=== PATIENT | female | born 1960 | race Caucasian/White ===

== ENCOUNTER 2017-02-17 09:30 | Emergency (ER) | payer MEDICARE, OTHER ==
[2017-02-17 09:43] VITALS: RESP 16
[2017-02-17] MEDS ORDERED: SODIUM CHLORIDE 0.9% 1,000 ML IV STA (09:43)
[2017-02-17] MEDS ORDERED: FAMOTIDINE 20 MG/2 ML VIAL IV STA (09:44)
--- NOTE | 2017-02-17 09:45 | ED ---
Abdominal Pain HPI - General Chief Complaint: Abdominal Pain Stated Complaint: Nausea/Vomiting Time Seen by Provider: 02/17/17 09:35 Source: patient, EMS, RN notes reviewed Mode of arrival: EMS Limitations: no limitations - History of Present Illness Initial Comments: This a 56-year-old female presents emergency Department chief complaint of nausea vomiting diarrhea. Patient states symptoms started this morning. Patient states she started feeling very nauseous and vomited several times and states that she started having abdominal discomfort related to her vomiting. She's states is in her upper abdomen. Patient denies any fever or chills. Patient states she's had several episodes of loose watery diarrhea. Patient denies any recent antibiotic use no sick contacts. Patient denies any dysuria or hematuria. Patient denies any rectal bleeding or hematemesis. Patient states she has a history also colitis but this feels different. Patient denies any chest pain or shortness breath. - Related Data Home Medications Medication Instructions Recorded Confirmed Albuterol Nebulized [Ventolin 2.5 mg INHALATION RT-Q4H PRN 02/17/17 02/17/17 Nebulized] Albuterol Sulfate [Proair Hfa] 2 puff INHALATION RT-Q4H PRN 02/17/17 02/17/17 Amitriptyline HCl [Elavil] 10 mg PO HS 02/17/17 02/17/17 Cholecalciferol [Vitamin D3] 3,000 unit PO DAILY 02/17/17 02/17/17 HYDROcodone/APAP 10-325MG [[place] 1 tab PO Q6H PRN 02/17/17 02/17/17 10-325] Nitroglycerin Sl Tabs [Nitrostat] 0.4 mg SUBLINGUAL Q5M PRN 02/17/17 02/17/17 Pantoprazole Sodium [Protonix] 40 mg PO DAILY 02/17/17 02/17/17 Prochlorperazine [Compazine] 10 mg PO Q8H PRN 02/17/17 02/17/17 Rebif Rebidose 44mcg/0.5ml 0.44 mcg SQ MOWEFR 02/17/17 02/17/17 Simvastatin [Zocor] 20 mg PO HS 02/17/17 02/17/17 Sucralfate [Carafate] 1 gm PO ACHS 02/17/17 02/17/17 Previous Rx's Medication Instructions Recorded Ondansetron Odt [Zofran Odt] 4 mg PO Q8HR PRN #10 tab 02/17/17 Allergies Allergy/AdvReac Type Severity Reaction Status Date / Time ciprofloxacin Allergy Rash/Hives Verified 02/17/17 10:15 Review of Systems ROS Statement: Those systems with pertinent positive or pertinent negative responses have been documented in the HPI. ROS Other: All systems not noted in ROS Statement are negative. Past Medical History Additional Past Medical History / Comment(s): Multiple sclerosis, Ulcerative Colitis, Osteoporosis L hip. History of Any Multi-Drug Resistant Organisms: None Reported Past Surgical History: Orthopedic Surgery Additional Past Surgical History / Comment(s): tumor removed from throat Past Psychological History: No Psychological Hx Reported Smoking Status: Current every day smoker Past Alcohol Use History: None Reported Past Drug Use History: Marijuana General Exam General appearance: alert, in no apparent distress Head exam: Present: atraumatic, normocephalic, normal inspection Neck exam: Present: normal inspection, full ROM. Absent: tenderness, meningismus, lymphadenopathy Respiratory exam: Present: normal lung sounds bilaterally. Absent: respiratory distress, wheezes, rales, rhonchi, stridor Cardiovascular Exam: Present: regular rate, normal rhythm, normal heart sounds. Absent: systolic murmur, diastolic murmur, rubs, gallop, clicks GI/Abdominal exam: Present: soft, normal bowel sounds. Absent: distended, tenderness (Patient had no tenderness with palpation), guarding, rebound, rigid Back exam: Absent: CVA tenderness (R), CVA tenderness (L) Skin exam: Present: warm, dry, intact, normal color. Absent: rash Course Vital Signs 02/17/17 09:36 Temperature 96.9 F L Pulse Rate 72 Respiratory 16 Rate Blood Pressure 124/81 O2 Sat by Pulse 98 Oximetry Medical Decision Making - Medical Decision Making 56-year-old female presented for abdominal discomfort, diarrhea and nausea vomiting. Patient's labwork is essentially unremarkable. Patient's x-ray does not show any acute abnormality. Patient states she isn't feeling improved after Zofran and Pepcid. Patient we discharge return parameters were discussed. - Lab Data Result diagrams: 02/17/17 09:45 02/17/17 09:45 Lab Results 02/17/17 02/17/1702/17/17 Range/Units 09:45 09:45 09:56 WBC 6.9 (3.8-10.6) k/uL RBC 4.32 (3.80-5.40) m/uL Hgb 13.6 (11.4-16.0) gm/dL Hct 39.5 (34.0-46.0) % MCV 91.5 (80.0-100.0) fL MCH 31.5 (25.0-35.0) pg MCHC 34.5 (31.0-37.0) g/dL RDW 13.5 (11.5-15.5) % Plt Count 170 (150-450) k/uL Neutrophils % 68 % Lymphocytes % 23 % Monocytes % 4 % Eosinophils % 3 % Basophils % 0 % Neutrophils # 4.7 (1.3-7.7) k/uL Lymphocytes # 1.6 (1.0-4.8) k/uL Monocytes # 0.3 (0-1.0) k/uL Eosinophils # 0.2 (0-0.7) k/uL Basophils # 0.0 (0-0.2) k/uL Sodium 143 (137-145) mmol/L Potassium 3.4 L (3.5-5.1) mmol/L Chloride 111 H (98-107) mmol/L Carbon Dioxide 22 (22-30) mmol/L Anion Gap 10 mmol/L BUN 12 (7-17) mg/dL Creatinine 0.71 (0.52-1.04) mg/dL Est GFR (MDRD) Af Amer >60 (>60 ml/min/1.73 sqM) Est GFR (MDRD) Non-Af >60 (>60 ml/min/1.73 sqM) Glucose 111 H (74-99) mg/dL Calcium 9.0 (8.4-10.2) mg/dL Total Bilirubin 0.5 (0.2-1.3) mg/dL AST 69 H (14-36) U/L ALT 75 H (9-52) U/L Alkaline Phosphatase 65 (38-126) U/L Total Protein 6.8 (6.3-8.2) g/dL Albumin 3.9 (3.5-5.0) g/dL Amylase 43 (30-110) U/L Lipase 101 (23-300) U/L Urine Color Light Yellow Urine Appearance Clear (Clear) Urine pH 7.0 (5.0-8.0) Ur Specific [place] 1.006 (1.001-1.035) Urine Protein Negative (Negative) Urine Glucose (UA) Negative (Negative) Urine Ketones Negative (Negative) Urine Blood Negative (Negative) Urine Nitrite Negative (Negative) Urine Bilirubin Negative (Negative) Urine Urobilinogen <2.0 (<2.0) mg/dL Ur Leukocyte Esterase Negative (Negative) Disposition Clinical Impression: Abdominal pain, Gastroenteritis Disposition: HOME SELF-CARE Condition: Stable Instructions: Gastroenteritis (ED) Additional Instructions: Please return to the Emergency Department if symptoms worsen or any other concerns. Prescriptions: Ondansetron Odt [Zofran Odt] 4 mg PO Q8HR PRN #10 tab PRN Reason: Nausea Referrals: Musa Damon MD [Primary Care Provider] - 1-2 days Time of Disposition: 10:31
[2017-02-17 09:56] LABS: Basophils % (A) 0 %; CH 31.5; CHCM 34.6; Eosinophils # (A) 0.2 k/uL (0-0.7); Eosinophils % (A) 3 %; HCT 39.5 % (34.0-46.0); HDW 2.66; HGB 13.6 gm/dL (11.4-16.0); Luc % (Auto) 2; Lymphocytes # (A) 1.6 k/uL (1.0-4.8); Lymphocytes % (A) 23 %; MCH 31.5 pg (25.0-35.0); MCHC 34.5 g/dL (31.0-37.0); MCV 91.5 fL (80.0-100.0); Mean Platelet Volume 8.9; Monocytes # (A) 0.3 k/uL (0-1.0); Monocytes % (A) 4 %; Neutrophils # (A) 4.7 k/uL (1.3-7.7); Neutrophils % (A) 68 %; RBC 4.32 m/uL (3.80-5.40); RDW 13.5 % (11.5-15.5); WBC 6.9 k/uL (3.8-10.6); WBC (Perox) 6.74
[2017-02-17 10:07] LABS: ALT 75 U/L (9-52); AST 69 U/L (14-36); Alkaline Phosphatase 65 U/L (38-126); Amylase 43 U/L (30-110); Anion Gap 10 mmol/L; Blood Urea Nitrogen 12 mg/dL (7-17); Carbon Dioxide 22 mmol/L (22-30); Chloride 111 mmol/L (98-107); Glucose 111 mg/dL (74-99); Non-African American GFR(MDRD) >60 (>60 ml/min/1.73 sqM); Potassium 3.4 mmol/L (3.5-5.1); Sodium 143 mmol/L (137-145); Total Bilirubin 0.5 mg/dL (0.2-1.3); Total Protein 6.8 g/dL (6.3-8.2)
[2017-02-17 10:16] LABS: Appearance,Urine Clear (Clear); Bilirubin,Urine Negative (Negative); Glucose,Urine (UA) Negative (Negative); Ketones,Urine Negative (Negative); Leukocyte Esterase,Urine Negative (Negative); Nitrite,Urine Negative (Negative); Protein,Urine Negative (Negative); Specific Gravity,Urine 1.006 (1.001-1.035); UA Billing (MACRO vs. MICRO) CHEM; Urobilinogen,Urine <2.0 mg/dL (<2.0)
--- NOTE | 2017-02-17 10:20 | XR ---
EXAMINATION TYPE: XR KUB DATE OF EXAM: 02/17/2017 10:13 AM CLINICAL HISTORY: Mid abdominal pain all over with nausea and vomiting. TECHNIQUE: Single upright KUB image of the abdomen is obtained. COMPARISON: Abdominal x-ray September 23, 2011. FINDINGS: Scattered gas is seen in non-distended stomach and small bowel loops. Gas and fecal materia l is seen in non-distended colon. Cholecystectomy clips are redemonstrated. Suspect surgical sutures left pelvis unchanged from prior study. Visualized lung bases are clear. No pneumoperitoneum is seen. There is marked disc space narrowing L3-L4 level with slight scoliotic curvature redemonstrated. IMPRESSION: Overall nonobstructive bowel gas pattern.
[2017-02-17 10:39] VITALS: BP 137/85; PULSE 69; TEMP 97.2
== END 2017-02-17 10:43 | disposition home or self-care (01) ==
LOC: EC 09:30
DX: K52.9 Noninfective gastroenteritis and colitis, unspecified (principal); R11.2 Nausea with vomiting, unspecified; G35 Multiple sclerosis; F17.200 Nicotine dependence, unspecified, uncomplicated; Z79.899 Other long term (current) drug therapy; Z88.1 Allergy status to other antibiotic agents
CPT/HCPCS: 36415; 74000; 80053; 81003; 82150; 83690; 85025; 96361; 96374; 99284

== ENCOUNTER 2017-02-18 10:34 | Inpatient (IN) | payer MEDICARE, OTHER ==
[2017-02-18] MEDS ORDERED: RX INFO: IV CONTRAST WAS GIVEN 1 EACH MISC MISCELLANE PRN (11:02)
[2017-02-18] MEDS ORDERED: HYDROmorphone 1 MG/ML 1 ML SYRINGE IVP STA (11:02)
[2017-02-18] MEDS ORDERED: ONDANSETRON 4 MG/2 ML VIAL IVP STA (11:02)
[2017-02-18] MEDS ORDERED: SODIUM CHLORIDE 0.9% 1,000 ML IV STA (11:02)
--- NOTE | 2017-02-18 11:05 | ED ---
General Adult HPI - General Chief complaint: Nausea/Vomiting/Diarrhea Stated complaint: revisit vomiting Time Seen by Provider: 02/18/17 10:35 Source: patient, family, RN notes reviewed Mode of arrival: wheelchair Limitations: no limitations - History of Present Illness Initial comments: This is a 56-year-old female who presents to the emergency department with past medical history significant for ulcers colitis. Patient states about 24 hours ago started vomiting having abdominal pain mostly in the right upper quadrant. Patient states she came to the emergency department yesterday and felt better when she left but however symptoms returned when she got home he continued to vomit throughout the night. Patient states she has diarrhea but shows his diuretic is avulsed colitis. Patient denies any bleeding in the stool. Patient denies any bleeding when she vomits. Patient denies any fever or chills. Patient denies any difficulty breathing shortness of breath. Patient states she is a smoker however. Patient denies any chest pain. Patient denies any lightheadedness dizziness or near syncopal episode. - Related Data Home Medications Medication Instructions Recorded Confirmed Albuterol Nebulized [Ventolin 2.5 mg INHALATION RT-Q4H PRN 02/17/17 02/18/17 Nebulized] Albuterol Sulfate [Proair Hfa] 2 puff INHALATION RT-Q4H PRN 02/17/17 02/18/17 Amitriptyline HCl [Elavil] 10 mg PO HS 02/17/17 02/18/17 Cholecalciferol [Vitamin D3] 3,000 unit PO DAILY 02/17/17 02/18/17 HYDROcodone/APAP 10-325MG [[place] 1 tab PO Q6H PRN 02/17/17 02/18/17 10-325] Nitroglycerin Sl Tabs [Nitrostat] 0.4 mg SUBLINGUAL Q5M PRN 02/17/17 02/18/17 Pantoprazole Sodium [Protonix] 40 mg PO DAILY 02/17/17 02/18/17 Prochlorperazine [Compazine] 10 mg PO Q8H PRN 02/17/17 02/18/17 Rebif Rebidose 44mcg/0.5ml 0.44 mcg SQ MOWEFR 02/17/17 02/18/17 Simvastatin [Zocor] 20 mg PO HS 02/17/17 02/18/17 Sucralfate [Carafate] 1 gm PO ACHS 02/17/17 02/18/17 Previous Rx's Medication Instructions Recorded Ondansetron Odt [Zofran Odt] 4 mg PO Q8HR PRN #10 tab 02/17/17 Allergies Allergy/AdvReac Type Severity Reaction Status Date / Time ciprofloxacin Allergy Rash/Hives Verified 02/18/17 10:45 Review of Systems ROS Statement: Those systems with pertinent positive or pertinent negative responses have been documented in the HPI. ROS Other: All systems not noted in ROS Statement are negative. Past Medical History Additional Past Medical History / Comment(s): Multiple sclerosis, Ulcerative Colitis, Osteoporosis L hip. History of Any Multi-Drug Resistant Organisms: None Reported Past Surgical History: Orthopedic Surgery Additional Past Surgical History / Comment(s): tumor removed from throat Past Psychological History: No Psychological Hx Reported Smoking Status: Current every day smoker Past Alcohol Use History: None Reported Past Drug Use History: Marijuana General Exam - General Exam Comments Initial Comments: GENERAL: Patient is well-developed and well-nourished. Patient is nontoxic and well- hydrated and is in no acute distress. ENT: Neck is soft and supple. No significant lymphadenopathy is noted. Oropharynx is clear. Moist mucous membranes. Neck has full range of motion without eliciting any pain. EYES: The sclera were anicteric and conjunctiva were pink and moist. Extraocular movements were intact and pupils were equal round and reactive to light. Eyelids were unremarkable. PULMONARY: Unlabored respirations. Good breath sounds bilaterally. No audible rales rhonchi or wheezing was noted. CARDIOVASCULAR: There is a regular rate and rhythm without any murmurs gallops or rubs. ABDOMEN: Soft and nontender with normal bowel sounds. There is no rebound or guarding. No palpable organomegaly was noted. There is no palpable pulsatile mass. SKIN: Skin is clear with no lesions or rashes and otherwise unremarkable. NEUROLOGIC: Patient is alert and oriented x3. Cranial nerves II through XII are grossly intact. Motor and sensory are also intact. Normal speech, volume and content. Symmetrical smile. MUSCULOSKELETAL: Normal extremities with adequate strength and full range of motion. No lower extremity swelling or edema. No calf tenderness. LYMPHATICS: No significant lymphadenopathy is noted PSYCHIATRIC: Normal psychiatric evaluation. Limitations: no limitations Course Vital Signs 02/18/17 02/18/17 10:35 11:08 Temperature 98.0 F 98 F Pulse Rate 119 H 110 H Respiratory 16 Rate Blood Pressure 135/94 145/92 O2 Sat by Pulse 99 99 Oximetry Medical Decision Making - Medical Decision Making Computed tomography scan shows colitis. - Lab Data Result diagrams: 02/18/17 11:34 02/18/17 11:34 Lab Results 02/18/17 02/18/17 02/18/17 Range/Units 11:34 11:34 11:34 WBC 12.8 H (3.8-10.6) k/uL RBC 5.50 H (3.80-5.40) m/uL Hgb 16.9 H D (11.4-16.0) gm/dL Hct 47.9 H (34.0-46.0) % MCV 87.2 (80.0-100.0) fL MCH 30.7 (25.0-35.0) pg MCHC 35.2 (31.0-37.0) g/dL RDW 12.9 (11.5-15.5) % Plt Count 238 (150-450) k/uL Neutrophils % 83 % Lymphocytes % 11 % Monocytes % 5 % Eosinophils % 0 % Basophils % 0 % Neutrophils # 10.7 H (1.3-7.7) k/uL Lymphocytes # 1.4 (1.0-4.8) k/uL Monocytes # 0.6 (0-1.0) k/uL Eosinophils # 0.0 (0-0.7) k/uL Basophils # 0.0 (0-0.2) k/uL Sodium 139 (137-145) mmol/L Potassium 3.3 L (3.5-5.1) mmol/L Chloride 99 (98-107) mmol/L Carbon Dioxide 23 (22-30) mmol/L Anion Gap 17 mmol/L BUN 14 (7-17) mg/dL Creatinine 0.73 (0.52-1.04) mg/dL Est GFR (MDRD) Af Amer >60 (>60 ml/min/1.73 sqM) Est GFR (MDRD) Non-Af >60 (>60 ml/min/1.73 sqM) Glucose 152 H (74-99) mg/dL Plasma Lactic Acid Silver 2.2 H* (0.7-2.0) mmol/L Calcium 10.5 H (8.4-10.2) mg/dL Total Bilirubin 0.7 (0.2-1.3) mg/dL AST 110 H (14-36) U/L ALT 173 H (9-52) U/L Alkaline Phosphatase 107 (38-126) U/L Total Protein 8.6 H (6.3-8.2) g/dL Albumin 5.0 (3.5-5.0) g/dL Amylase 108 (30-110) U/L Lipase 323 H (23-300) U/L Urine Color Urine Appearance (Clear) Urine pH (5.0-8.0) Ur Specific [place] (1.001-1.035) Urine Protein (Negative) Urine Glucose (UA) (Negative) Urine Blood (Negative) Urine Nitrite (Negative) Urine Bilirubin (Negative) Urine Urobilinogen (<2.0) mg/dL Ur Leukocyte Esterase (Negative) Urine RBC (0-5) /hpf Urine WBC (0-5) /hpf Ur Squamous Epith Cells (0-4) /hpf Hyaline Casts (0-2) /lpf Urine Mucus (None) /hpf 02/18/ Range/Units 11:41 WBC (3.8-10.6) k/uL RBC (3.80-5.40) m/uL Hgb (11.4-16.0) gm/dL Hct (34.0-46.0) % MCV (80.0-100.0) fL MCH (25.0-35.0) pg MCHC (31.0-37.0) g/dL RDW (11.5-15.5) % Plt Count (150-450) k/uL Neutrophils % % Lymphocytes % % Monocytes % % Eosinophils % % Basophils % % Neutrophils # (1.3-7.7) k/uL Lymphocytes # (1.0-4.8) k/uL Monocytes # (0-1.0) k/uL Eosinophils # (0-0.7) k/uL Basophils # (0-0.2) k/uL Sodium (137-145) mmol/L Potassium (3.5-5.1) mmol/L Chloride (98-107) mmol/L Carbon Dioxide (22-30) mmol/L Anion Gap mmol/L BUN (7-17) mg/dL Creatinine (0.52-1.04) mg/dL Est GFR (MDRD) Af Amer (>60 ml/min/1.73 sqM) Est GFR (MDRD) Non-Af (>60 ml/min/1.73 sqM) Glucose (74-99) mg/dL Plasma Lactic Acid Silver (0.7-2.0) mmol/L Calcium (8.4-10.2) mg/dL Total Bilirubin (0.2-1.3) mg/dL AST (14-36) U/L ALT (9-52) U/L Alkaline Phosphatase (38-126) U/L Total Protein (6.3-8.2) g/dL Albumin (3.5-5.0) g/dL Amylase (30-110) U/L Lipase (23-300) U/L Urine Color Yellow Urine Appearance Cloudy H (Clear) Urine pH 6.5 (5.0-8.0) Ur Specific [place] 1.016 (1.001-1.035) Urine Protein 3+ H (Negative) Urine Glucose (UA) Negative (Negative) Urine Blood Small H (Negative) Urine Nitrite Negative (Negative) Urine Bilirubin Negative (Negative) Urine Urobilinogen <2.0 (<2.0) mg/dL Ur Leukocyte Esterase Negative (Negative) Urine RBC 22 H (0-5) /hpf Urine WBC 4 (0-5) /hpf Ur Squamous Epith Cells 10 H (0-4) /hpf Hyaline Casts 2 (0-2) /lpf Urine Mucus Rare H (None) /hpf Disposition Clinical Impression: Colitis Disposition: ADMITTED IP TO THIS [facility] Referrals: Musa Damon MD [Primary Care Provider] - 1-2 days Time of Disposition: 13:01
[2017-02-18 12:00] LABS: ALT 173 U/L (9-52); AST 110 U/L (14-36); Alkaline Phosphatase 107 U/L (38-126); Amylase 108 U/L (30-110); Anion Gap 17 mmol/L; Blood Urea Nitrogen 14 mg/dL (7-17); Calcium 10.5 mg/dL (8.4-10.2); Carbon Dioxide 23 mmol/L (22-30); Chloride 99 mmol/L (98-107); Glucose 152 mg/dL (74-99); Non-African American GFR(MDRD) >60 (>60 ml/min/1.73 sqM); Potassium 3.3 mmol/L (3.5-5.1); Sodium 139 mmol/L (137-145); Total Bilirubin 0.7 mg/dL (0.2-1.3); Total Protein 8.6 g/dL (6.3-8.2)
--- NOTE | 2017-02-18 12:05 | XR ---
EXAMINATION TYPE: XR chest 2V DATE OF EXAM: 02/18/2017 COMPARISON: None HISTORY: 56-year-old female difficulty breathing TECHNIQUE: AP and lateral views FINDINGS: The cardiomediastinal silhouette, aorta, and pulmonary vasculature are within normal limits. Strandy areas of atelectasis in the lower lungs. There is some right suprahilar prominence suspected summatio n artifact. No consolidation or pleural effusion. Prominent right anterior sixth rib end. IMPRESSION: 1. Strandy areas of atelectasis. No acute process seen. 2. Some right suprahilar prominence, suspected summation artifact. Recommend 4-6 week follow-up to re assess.
[2017-02-18 12:06] LABS: Basophils % (A) 0 %; CH 31.2; Eosinophils % (A) 0 %; HCT 47.9 % (34.0-46.0); HDW 2.71; Luc % (Auto) 1; Lymphocytes # (A) 1.4 k/uL (1.0-4.8); Lymphocytes % (A) 11 %; MCH 30.7 pg (25.0-35.0); MCHC 35.2 g/dL (31.0-37.0); MCV 87.2 fL (80.0-100.0); Mean Platelet Volume 8.1; Monocytes # (A) 0.6 k/uL (0-1.0); Monocytes % (A) 5 %; Neutrophils # (A) 10.7 k/uL (1.3-7.7); Neutrophils % (A) 83 %; RDW 12.9 % (11.5-15.5); WBC 12.8 k/uL (3.8-10.6); WBC (Perox) 12.71
[2017-02-18 12:10] LABS: HGB 16.9 gm/dL (11.4-16.0)
[2017-02-18 12:12] LABS: Appearance,Urine Cloudy (Clear); Bilirubin,Urine Negative (Negative); Glucose,Urine (UA) Negative (Negative); Ketones,Urine 2+ (Negative); Leukocyte Esterase,Urine Negative (Negative); Mucus,Urine Rare /hpf; Nitrite,Urine Negative (Negative); PH, Urine 6.5 (5.0-8.0); Particle Count 3853; Protein,Urine 3+ (Negative); RBC,Urine 22 /hpf (0-5); Specific Gravity,Urine 1.016 (1.001-1.035); Squamous Epithelial Cell,Urine 10 /hpf (0-4); UA Billing (MACRO vs. MICRO) MICRO; Urobilinogen,Urine <2.0 mg/dL (<2.0); WBC,Urine 4 /hpf (0-5)
--- NOTE | 2017-02-18 12:51 | CT ---
EXAMINATION TYPE: CT abdomen pelvis w con DATE OF EXAM: 02/18/2017 COMPARISON: NONE HISTORY: Abdominal pain CT DLP: 1061 mGycm CONTRAST: CT scan of the abdomen and pelvis is performed without Oral Contrast and with IV Contrast, patient in jected with 100 ml mL of Omnipaque 300. FINDINGS: LUNG BASES-: No visible nodule. No infiltrate. LIVER/GB: No space occupying hepatic lesion. Biliary tree is of normal caliber. There is evidence of fatty hepatic infiltration. Cholecystectomy clips are in place. PANCREAS: No inflammation. No distinct mass. SPLEEN: No splenic enlargement. No lesion seen. ADRENALS: No nodule. No thickening. KIDNEYS/BLADDER: No hydronephrosis. No nephrolithiasis. No disctinct renal mass. Urinary bladder g rossly unremarkable. BOWEL: Normal appendix. There is wall thickening which is mild in degree involving the descending col on and sigmoid colon compatible with colitis. GENITAL ORGANS: 1 cm follicular cyst left ovary. Uterus and right ovary are unremarkable. LYMPH NODES: No greater than 1cm abdominal or pelvic lymph nodes are appreciated. AORTA: No significant abnormality. OSSEOUS STRUCTURES: No significant abnormality is seen. OTHER: No significant additional abnormality is seen. IMPRESSION: 1. Nonspecific colitis of the descending colon and sigmoid colon. 2. Fatty liver. 3. Small left ovarian follicular cyst.
[2017-02-18] MEDS ORDERED: SODIUM CHLORIDE 0.9% 1,000 ML IV ONE (13:01)
[2017-02-18] MEDS ORDERED: methylPREDNISolone SOD SUCCI 125 MG/2 ML VIAL IV STA (13:03)
[2017-02-18] MEDS ORDERED: PROCHLORPERAZINE 10 MG TAB PO PRN (15:34)
[2017-02-18] MEDS ORDERED: ALBUTEROL NEBULIZED 2.5 MG/3 ML INHALATION PRN (15:34)
[2017-02-18] MEDS: HYDROmorphone 1 MG/ML 1 ML SYRINGE IVP PRN (16:45)
[2017-02-18] MEDS: metroNIDAZOLE 500 MG TAB PO SCH ×2 (17:09→19:46)
[2017-02-18] MEDS: SUCRALFATE 1 GM TAB PO SCH ×2 (17:09→19:46)
[2017-02-18] MEDS ORDERED: Potassium Replacement Protocol 1 EACH MISC MISCELLANE PRN (18:47)
[2017-02-18] MEDS: ONDANSETRON 4 MG/2 ML VIAL IVP PRN (19:27)
[2017-02-18] MEDS: POTASSIUM CHLORIDE ER 20 MEQ TAB.ER PO SCH ×2 (19:48→21:41)
[2017-02-18] MEDS ORDERED: AMITRIPTYLINE HCL 10 MG TAB PO SCH (21:00)
[2017-02-18 23:20] VITALS: TEMP 98.7
[2017-02-19] MEDS: POTASSIUM CHLORIDE ER 20 MEQ TAB.ER PO SCH (00:01)
[2017-02-19] MEDS ORDERED: ALPRAZolam 0.25 MG TAB PO PRN (00:21)
[2017-02-19] MEDS: NICOTINE 14MG/24HR PATCH TRANSDERM SCH ×2 (01:14→15:18)
[2017-02-19] MEDS: ONDANSETRON 4 MG/2 ML VIAL IVP PRN (03:05)
[2017-02-19] MEDS: HYDROmorphone 1 MG/ML 1 ML SYRINGE IVP PRN ×3 (03:05→11:09)
[2017-02-19] MEDS ORDERED: PANTOPRAZOLE 40 MG TABLET PO SCH (07:30)
[2017-02-19] MEDS: SUCRALFATE 1 GM TAB PO SCH ×2 (07:32→12:58)
[2017-02-19 08:12] VITALS: PULSE 92; RESP 18
[2017-02-19 08:35] VITALS: BP 164/97
[2017-02-19] MEDS ORDERED: CHOLECALCIFEROL 1,000 UNIT TAB PO SCH (09:00)
[2017-02-19] MEDS: metroNIDAZOLE 500 MG TAB PO SCH (09:46)
[2017-02-19 10:46] LABS: Basophils % (A) 0 %; CH 31.4; CHCM 34.4; Eosinophils % (A) 0 %; HDW 2.65; HGB 15.9 gm/dL (11.4-16.0); Luc # (Auto) 0.13; Luc % (Auto) 1; Lymphocytes # (A) 1.2 k/uL (1.0-4.8); Lymphocytes % (A) 8 %; MCHC 33.8 g/dL (31.0-37.0); MCV 91.7 fL (80.0-100.0); Mean Platelet Volume 8.7; Monocytes # (A) 0.8 k/uL (0-1.0); Monocytes % (A) 5 %; Neutrophils # (A) 13.6 k/uL (1.3-7.7); Neutrophils % (A) 87 %; RBC 5.12 m/uL (3.80-5.40); WBC 15.7 k/uL (3.8-10.6); WBC (Perox) 15.94
[2017-02-19 10:53] LABS: ALT 118 U/L (9-52); AST 69 U/L (14-36); Alkaline Phosphatase 80 U/L (38-126); Anion Gap 10 mmol/L; Blood Urea Nitrogen 14 mg/dL (7-17); Calcium 9.5 mg/dL (8.4-10.2); Carbon Dioxide 24 mmol/L (22-30); Chloride 102 mmol/L (98-107); Glucose 130 mg/dL (74-99); Non-African American GFR(MDRD) >60 (>60 ml/min/1.73 sqM); Sodium 136 mmol/L (137-145); Total Bilirubin 0.5 mg/dL (0.2-1.3); Total Protein 7.5 g/dL (6.3-8.2)
[2017-02-19 13:35] VITALS: BMI 24.4
--- NOTE | 2017-02-19 14:16 | P.HPIM ---
History of Present Illness H&P Date: 02/18/17 This is a 56-year-old female with history of multiple sclerosis, diagnosed with ulcerative colitis by physician out of [facility] system comes in to the hospital with complaints of diarrhea a day prior to admission Patient states that she did have some abdominal pain with concern for a UC flare patient came in to the hospital patient was seen in the emergency room Patient stated that she has had multiple loose stools and was hemoconcentrated hence was admitted for IV hydration Patient apparently did have antibiotic use or a month ago for a odontogenic infection Patient however denied having any headaches blurry vision nausea vomiting chest pain, difficulty breathing, lower extremity edema Patient has a history of multiple sclerosis Review of Systems All systems: negative (Noted in HPI) Past Medical History Past Medical History: GERD/Reflux, Hyperlipidemia, Osteoarthritis (OA), Pneumonia Additional Past Medical History / Comment(s): Multiple sclerosis, Ulcerative Colitis, Osteoporosis L hip.past kidney stone, past benign throat tumor removed , shanika tinnitus, migarines, "3 samll strokes""poor circulation rt leg",hiatal hernia, fx tail bone, occ n/t arms and laegs History of Any Multi-Drug Resistant Organisms: None Reported Past Surgical History: Cholecystectomy, Orthopedic Surgery, Tonsillectomy, Tubal Ligation Additional Past Surgical History / Comment(s): tumor removed from throat, kidney stone removed,"artifiical ear drum inserted""roller ball sx d/t heavy periods-has'nt had a period in >20 years, colonoscopy/egd, rt rotator cuff repair, rt bicept sx d/t tear. Past Anesthesia/Blood Transfusion Reactions: Motion Sickness, Postoperative Nausea & Vomiting (PONV) Additional Past Anesthesia/Blood Transfusion Reaction / Comment(s): clausterphobia Smoking Status: Current every day smoker - Past Family History Father Family Medical History: Cancer Additional Family Medical History / Comment(s): throat Mother Family Medical History: Cancer Additional Family Medical History / Comment(s): uterin/bone Medications and Allergies Home Medications Medication Instructions Recorded Confirmed Type Albuterol Nebulized [Ventolin 2.5 mg INHALATION RT-Q4H PRN 02/17/17 02/18/17 History Nebulized] Albuterol Sulfate [Proair Hfa] 2 puff INHALATION RT-Q4H PRN 02/17/17 02/18/17 History Amitriptyline HCl [Elavil] 10 mg PO HS 02/17/17 02/18/17 History Cholecalciferol [Vitamin D3] 3,000 unit PO DAILY 02/17/17 02/18/17 History HYDROcodone/APAP 10-325MG [[place] 1 tab PO Q6H PRN 02/17/17 02/18/17 History 10-325] Nitroglycerin Sl Tabs [Nitrostat] 0.4 mg SUBLINGUAL Q5M PRN 02/17/17 02/18/17 History Pantoprazole Sodium [Protonix] 40 mg PO DAILY 02/17/17 02/18/17 History Prochlorperazine [Compazine] 10 mg PO Q8H PRN 02/17/17 02/18/17 History Rebif Rebidose 44mcg/0.5ml 0.44 mcg SQ MOWEFR 02/17/17 02/18/17 History Simvastatin [Zocor] 20 mg PO HS 02/17/17 02/18/17 History Sucralfate [Carafate] 1 gm PO ACHS 02/17/17 02/18/17 History Allergies Allergy/AdvReac Type Severity Reaction Status Date / Time ciprofloxacin Allergy Rash/Hives Verified 02/18/17 10:45 Physical Exam Vitals: Vital Signs Temp Pulse Resp BP Pulse Ox 02/18/17 15:57 98.8 F 90 19 164/83 94 L 02/18/17 15:22 95 20 150/107 98 02/18/17 14:39 104 H 16 161/99 97 02/18/17 11:08 98 F 110 H 145/92 99 02/18/17 10:35 98.0 F 119 H 16 135/94 99 Intake and Output 02/18/17 02/18/17 02/18/17 06:59 14:59 22:59 Other: Weight 56.699 kg Patient Weight 02/19/17 06:59 Weight 56.699 kg Physical exam Gen. appearance oriented 3 in no distress Neck is supple no JVD Lungs good air entry clear to auscultation no rhonchi or wheezing Heart S1-S2 heard regular rate and rhythm no murmurs appreciated Abdomen is soft nontender no organomegaly bowel sounds are intact Neurologically cranial nerves II-12 grossly intact no focal motor or sensory deficits noted Skin no abnormalities appreciated Results CBC & Chem 7: 02/19/17 09:34 02/19/17 09:34 Labs: Abnormal Lab Results - Last 24 Hours (Table) 02/18/17 02/18/17 02/18/17 Range/Units 11:34 11:34 11:34 WBC 12.8 H (3.8-10.6) k/uL RBC 5.50 H (3.80-5.40) m/uL Hgb 16.9 H D (11.4-16.0) gm/dL Hct 47.9 H (34.0-46.0) % Neutrophils # 10.7 H (1.3-7.7) k/uL Potassium 3.3 L (3.5-5.1) mmol/L Glucose 152 H (74-99) mg/dL Plasma Lactic Acid Silver 2.2 H* (0.7-2.0) mmol/L Calcium 10.5 H (8.4-10.2) mg/dL AST 110 H (14-36) U/L ALT 173 H (9-52) U/L Total Protein 8.6 H (6.3-8.2) g/dL Lipase 323 H (23-300) U/L Urine Appearance (Clear) Urine Protein (Negative) Urine Ketones (Negative) Urine Blood (Negative) Urine RBC (0-5) /hpf Ur Squamous Epith Cells (0-4) /hpf Urine Mucus (None) /hpf 02/18/17 Range/Units 11:41 WBC (3.8-10.6) k/uL RBC (3.80-5.40) m/uL Hgb (11.4-16.0) gm/dL Hct (34.0-46.0) % Neutrophils # (1.3-7.7) k/uL Potassium (3.5-5.1) mmol/L Glucose (74-99) mg/dL Plasma Lactic Acid Silver (0.7-2.0) mmol/L Calcium (8.4-10.2) mg/dL AST (14-36) U/L ALT (9-52) U/L Total Protein (6.3-8.2) g/dL Lipase (23-300) U/L Urine Appearance Cloudy H (Clear) Urine Protein 3+ H (Negative) Urine Ketones 2+ H (Negative) Urine Blood Small H (Negative) Urine RBC 22 H (0-5) /hpf Ur Squamous Epith Cells 10 H (0-4) /hpf Urine Mucus Rare H (None) /hpf Assessment and Plan Plan: 1. Acute diarrhea, suspect infectious 2. Hisotry of UC 3. MS 4. Chronic low back pain 5. Ongoing tobacco use Plan iv flagyl 500mg tid rule out c diff DVT prophylaxis IV fluids
--- NOTE | 2017-02-19 14:19 | P.DS ---
Providers Date of admission: 02/18/17 13:01 Attending physician: Munira Hardy Primary care physician: Musa Damon [facility] Course: This is a 56-year-old female with history of multiple sclerosis, diagnosed with ulcerative colitis by physician out of [facility] comes in to the hospital with complaints of diarrhea a day prior to admission Patient states that she did have some abdominal pain with concern for a UC flare patient came in to the hospital patient was seen in the emergency room Patient stated that she has had multiple loose stools and was hemoconcentrated hence was admitted for IV hydration Patient apparently did have antibiotic use or a month ago for a odontogenic infection Patient however denied having any headaches blurry vision nausea vomiting chest pain, difficulty breathing, lower extremity edema Patient has a history of multiple sclerosis Physical exam Gen. appearance oriented 3 in no distress Neck is supple no JVD Lungs good air entry clear to auscultation no rhonchi or wheezing Heart S1-S2 heard regular rate and rhythm no murmurs appreciated Abdomen is soft nontender no organomegaly bowel sounds are intact Neurologically cranial nerves II-12 grossly intact no focal motor or sensory deficits noted Skin no abnormalities appreciated 1. Acute diarrhea, suspect infectious etiology however improved. We'll treat the patient clinically with 7 days of Flagyl by mouth 500 3 times a day 2. Hisotry of UC with no acute exacerbation 3. MS with no acute exacerbation 4. Chronic low back pain 5. Ongoing tobacco use #6 GERD. Patient states to have no nocturnal symptoms Patient apparently underwent an upper endoscopy 2 years ago was noted to have gastritis and duodenitis Patient be discharged on protonic 40 mg by mouth twice a day to follow-up with Dr. Quach Plan - Discharge Summary New Discharge Prescriptions: New metroNIDAZOLE [Flagyl] 500 mg PO TID #21 tab Continue Sucralfate [Carafate] 1 gm PO ACHS Simvastatin [Zocor] 20 mg PO HS Cholecalciferol [Vitamin D3] 3,000 unit PO DAILY Prochlorperazine [Compazine] 10 mg PO Q8H PRN PRN Reason: Nausea And Vomiting Albuterol Sulfate [Proair Hfa] 2 puff INHALATION RT-Q4H PRN PRN Reason: Shortness Of Breath Nitroglycerin Sl Tabs [Nitrostat] 0.4 mg SUBLINGUAL Q5M PRN PRN Reason: Chest Pain HYDROcodone/APAP 10-325MG [[place] 10-325] 1 tab PO Q6H PRN PRN Reason: Pain Amitriptyline HCl [Elavil] 10 mg PO HS Albuterol Nebulized [Ventolin Nebulized] 2.5 mg INHALATION RT-Q4H PRN PRN Reason: Shortness Of Breath Rebif Rebidose 44mcg/0.5ml 0.44 mcg SQ MOWEFR Ondansetron Odt [Zofran ODT] 4 mg PO Q8HR PRN #10 tab PRN Reason: Nausea Changed Pantoprazole Sodium [Protonix] 40 mg PO BID #30 Discharge Medication List Albuterol Nebulized [Ventolin Nebulized] 2.5 mg INHALATION RT-Q4H PRN 02/17/17 [ History] Albuterol Sulfate [Proair Hfa] 2 puff INHALATION RT-Q4H PRN 02/17/17 [History] Amitriptyline HCl [Elavil] 10 mg PO HS 02/17/17 [History] Cholecalciferol [Vitamin D3] 3,000 unit PO DAILY 02/17/17 [History] HYDROcodone/APAP 10-325MG [[place] 10-325] 1 tab PO Q6H PRN 02/17/17 [History] Nitroglycerin Sl Tabs [Nitrostat] 0.4 mg SUBLINGUAL Q5M PRN 02/17/17 [History] Ondansetron Odt [Zofran ODT] 4 mg PO Q8HR PRN #10 tab 02/17/17 [Rx] Prochlorperazine [Compazine] 10 mg PO Q8H PRN 02/17/17 [History] Rebif Rebidose 44mcg/0.5ml 0.44 mcg SQ MOWEFR 02/17/17 [History] Simvastatin [Zocor] 20 mg PO HS 02/17/17 [History] Sucralfate [Carafate] 1 gm PO ACHS 02/17/17 [History] Pantoprazole Sodium [Protonix] 40 mg PO BID #30 02/19/17 [Rx] metroNIDAZOLE [Flagyl] 500 mg PO TID #21 tab 02/19/17 [Rx] Follow up Appointment(s)/Referral(s): Fuentes Correia MD [STAFF PHYSICIAN] - 1 Week Musa Damon MD [Primary Care Provider] - 1-2 days Discharge Disposition: HOME SELF-CARE
== END 2017-02-19 16:10 | disposition home or self-care (01) | DRG 392 ==
LOC: EC 10:34 → 5MS5E 13:01 → 4MS4W 14:29
PROVIDERS: ADMIT Hospitalist; ATTEND Hospitalist
DX: A09 Infectious gastroenteritis and colitis, unspecified (principal); G35 Multiple sclerosis; E78.5 Hyperlipidemia, unspecified; F17.200 Nicotine dependence, unspecified, uncomplicated; G89.29 Other chronic pain; K21.9 Gastro-esophageal reflux disease without esophagitis; M81.0 Age-related osteoporosis without current pathological fracture; K44.9 Diaphragmatic hernia without obstruction or gangrene; M19.90 Unspecified osteoarthritis, unspecified site; M54.5 Low back pain; G43.909 Migraine, unspecified, not intractable, without status migrainosus; H93.13 Tinnitus, bilateral; Z79.899 Other long term (current) drug therapy; Z88.1 Allergy status to other antibiotic agents
CPT/HCPCS: 36415; 71020; 74000; 74177; 80053; 81001; 81003; 82150; 83605; 83690; 85025; 96361; 96374; 96375; 99284; 99285

== ENCOUNTER 2017-03-21 04:06 | Emergency (ER) | payer MEDICARE, OTHER ==
[2017-03-21] MEDS ORDERED: SODIUM CHLORIDE 0.9% 1,000 ML IV STA (04:23)
[2017-03-21] MEDS ORDERED: MORPHINE SULFATE 4 MG/ML SYRINGE IV STA (04:23)
[2017-03-21] MEDS ORDERED: ONDANSETRON 4 MG/2 ML VIAL IVP STA (04:25)
--- NOTE | 2017-03-21 04:26 | ED ---
General Adult HPI - General Chief complaint: Urogenital Stated complaint: Blood in urine Time Seen by Provider: 03/21/17 04:19 Source: patient, family, RN notes reviewed Mode of arrival: ambulatory Limitations: no limitations - History of Present Illness Initial comments: Patient is a pleasant 56-year-old female presenting to the emergency department complaining of hematuria. Patient has had some abdominal discomfort over the past couple of days. Patient does like pressure more so in the lower abdomen. Patient has had mild burning with urination today. Patient developed hematuria prior to arrival. No history of similar symptoms previously. Patient does have a history of kidney stones however had more pain associated with that. No fevers. Patient has had some mild nausea with one episode of vomiting in the morning. - Related Data Home Medications Medication Instructions Recorded Confirmed Albuterol Nebulized [Ventolin 2.5 mg INHALATION RT-Q4H PRN 02/17/17 02/18/17 Nebulized] Albuterol Sulfate [Proair Hfa] 2 puff INHALATION RT-Q4H PRN 02/17/17 02/18/17 Amitriptyline HCl [Elavil] 10 mg PO HS 02/17/17 02/18/17 Cholecalciferol [Vitamin D3] 3,000 unit PO DAILY 02/17/17 02/18/17 HYDROcodone/APAP 10-325MG [[place] 1 tab PO Q6H PRN 02/17/17 02/18/17 10-325] Nitroglycerin Sl Tabs [Nitrostat] 0.4 mg SUBLINGUAL Q5M PRN 02/17/17 02/18/17 Prochlorperazine [Compazine] 10 mg PO Q8H PRN 02/17/17 02/18/17 Rebif Rebidose 44mcg/0.5ml 0.44 mcg SQ MOWEFR 02/17/17 02/18/17 Simvastatin [Zocor] 20 mg PO HS 02/17/17 02/18/17 Sucralfate [Carafate] 1 gm PO ACHS 02/17/17 02/18/17 Previous Rx's Medication Instructions Recorded Ondansetron Odt [Zofran ODT] 4 mg PO Q8HR PRN #10 tab 02/17/17 Pantoprazole Sodium [Protonix] 40 mg PO BID #60 02/19/17 metroNIDAZOLE [Flagyl] 500 mg PO TID #21 tab 02/19/17 Cephalexin [Keflex] 500 mg PO QID #40 cap 03/21/17 Allergies Allergy/AdvReac Type Severity Reaction Status Date / Time ciprofloxacin Allergy Rash/Hives Verified 03/21/17 04:13 Review of Systems ROS Statement: Those systems with pertinent positive or pertinent negative responses have been documented in the HPI. ROS Other: All systems not noted in ROS Statement are negative. Constitutional: Denies: fever Eyes: Denies: eye pain ENT: Denies: ear pain Respiratory: Denies: cough Cardiovascular: Denies: chest pain Endocrine: Denies: fatigue Gastrointestinal: Reports: abdominal pain, nausea, vomiting Genitourinary: Reports: dysuria, hematuria Musculoskeletal: Reports: back pain (Chronic and unchanged) Skin: Denies: rash Neurological: Denies: weakness Past Medical History Past Medical History: GERD/Reflux, Hyperlipidemia, Osteoarthritis (OA), Pneumonia Additional Past Medical History / Comment(s): Multiple sclerosis, Ulcerative Colitis, Osteoporosis L hip.past kidney stone, past benign throat tumor removed , shanika tinnitus, migarines, "3 samll strokes""poor circulation rt leg",hiatal hernia, fx tail bone, occ n/t arms and laegs History of Any Multi-Drug Resistant Organisms: None Reported Past Surgical History: Cholecystectomy, Orthopedic Surgery, Tonsillectomy, Tubal Ligation Additional Past Surgical History / Comment(s): tumor removed from throat, kidney stone removed,"artifiical ear drum inserted""roller ball sx d/t heavy periods-has'nt had a period in >20 years, colonoscopy/egd, rt rotator cuff repair, rt bicept sx d/t tear. Past Anesthesia/Blood Transfusion Reactions: Motion Sickness, Postoperative Nausea & Vomiting (PONV) Additional Past Anesthesia/Blood Transfusion Reaction / Comment(s): clausterphobia Past Psychological History: Anxiety, Depression Smoking Status: Current every day smoker - Past Family History Father Family Medical History: Cancer Additional Family Medical History / Comment(s): throat Mother Family Medical History: Cancer Additional Family Medical History / Comment(s): uterin/bone General Exam Limitations: no limitations General appearance: alert Head exam: Present: atraumatic, normocephalic Eye exam: Present: normal appearance, PERRL ENT exam: Present: normal oropharynx Neck exam: Present: normal inspection Respiratory exam: Present: normal lung sounds bilaterally Cardiovascular Exam: Present: regular rate, normal rhythm GI/Abdominal exam: Present: soft. Absent: distended, tenderness, guarding Extremities exam: Present: normal inspection Back exam: Present: normal inspection Neurological exam: Present: alert Psychiatric exam: Present: normal affect, normal mood Skin exam: Present: normal color Course Vital Signs 03/21/17 03/21/17 04:10 05:50 Temperature 98 F 98.9 F Pulse Rate 105 H 85 Respiratory 28 H 20 Rate Blood Pressure 158/105 152/92 O2 Sat by Pulse 99 98 Oximetry Medical Decision Making - Medical Decision Making Patient reexamined and resting comfortably in bed. Patient is having some discomfort. Patient and family were updated on results and need for follow-up. Patient is specifically recommended to return if she develops fever. Patient is not felt to be septic and change in vital signs is related to discomfort. - Lab Data Result diagrams: 03/21/17 04:37 03/21/17 04:37 Lab Results 03/21/17 03/21/17 03/21/17 Range/Units 04:21 04:37 04:37 WBC 12.1 H (3.8-10.6) k/uL RBC 4.66 (3.80-5.40) m/uL Hgb 14.9 (11.4-16.0) gm/dL Hct 43.9 (34.0-46.0) % MCV 94.2 (80.0-100.0) fL MCH 32.0 (25.0-35.0) pg MCHC 34.0 (31.0-37.0) g/dL RDW 14.0 (11.5-15.5) % Plt Count 198 (150-450) k/uL Neutrophils % 81 % Lymphocytes % 11 % Monocytes % 4 % Eosinophils % 2 % Basophils % 0 % Neutrophils # 9.8 H (1.3-7.7) k/uL Lymphocytes # 1.3 (1.0-4.8) k/uL Monocytes # 0.5 (0-1.0) k/uL Eosinophils # 0.3 (0-0.7) k/uL Basophils # 0.0 (0-0.2) k/uL PT (9.0-12.0) sec INR (<1.2) APTT (22.0-30.0) sec Sodium 138 (137-145) mmol/L Potassium 3.7 (3.5-5.1) mmol/L Chloride 106 (98-107) mmol/L Carbon Dioxide 20 L (22-30) mmol/L Anion Gap 12 mmol/L BUN 11 (7-17) mg/dL Creatinine 0.80 (0.52-1.04) mg/dL Est GFR (MDRD) Af Amer >60 (>60 ml/min/1.73 sqM) Est GFR (MDRD) Non-Af >60 (>60 ml/min/1.73 sqM) Glucose 140 H (74-99) mg/dL Calcium 9.7 (8.4-10.2) mg/dL Total Bilirubin 0.5 (0.2-1.3) mg/dL AST 39 H (14-36) U/L ALT 59 H (9-52) U/L Alkaline Phosphatase 76 (38-126) U/L Total Protein 7.2 (6.3-8.2) g/dL Albumin 4.3 (3.5-5.0) g/dL Amylase 60 (30-110) U/L Lipase 73 (23-300) U/L Urine Color Dark Red Urine Appearance Turbid H (Clear) Urine pH 7.5 (5.0-8.0) Ur Specific [place] 1.011 (1.001-1.035) Urine Protein 2+ H (Negative) Urine Glucose (UA) Negative (Negative) Urine Ketones Trace H (Negative) Urine Blood Large H (Negative) Urine Nitrite Negative (Negative) Urine Bilirubin Negative (Negative) Urine Urobilinogen <2.0 (<2.0) mg/dL Ur Leukocyte Esterase Small H (Negative) Urine RBC >182 H (0-5) /hpf Urine WBC 46 H (0-5) /hpf 03/21/17 Range/Units 04:37 WBC (3.8-10.6) k/uL RBC (3.80-5.40) m/uL Hgb (11.4-16.0) gm/dL Hct (34.0-46.0) % MCV (80.0-100.0) fL MCH (25.0-35.0) pg MCHC (31.0-37.0) g/dL RDW (11.5-15.5) % Plt Count (150-450) k/uL Neutrophils % % Lymphocytes % % Monocytes % % Eosinophils % % Basophils % % Neutrophils # (1.3-7.7) k/uL Lymphocytes # (1.0-4.8) k/uL Monocytes # (0-1.0) k/uL Eosinophils # (0-0.7) k/uL Basophils # (0-0.2) k/uL PT 10.2 (9.0-12.0) sec INR 1.0 (<1.2) APTT 24.9 (22.0-30.0) sec Sodium (137-145) mmol/L Potassium (3.5-5.1) mmol/L Chloride (98-107) mmol/L Carbon Dioxide (22-30) mmol/L Anion Gap mmol/L BUN (7-17) mg/dL Creatinine (0.52-1.04) mg/dL Est GFR (MDRD) Af Amer (>60 ml/min/1.73 sqM) Est GFR (MDRD) Non-Af (>60 ml/min/1.73 sqM) Glucose (74-99) mg/dL Calcium (8.4-10.2) mg/dL Total Bilirubin (0.2-1.3) mg/dL AST (14-36) U/L ALT (9-52) U/L Alkaline Phosphatase (38-126) U/L Total Protein (6.3-8.2) g/dL Albumin (3.5-5.0) g/dL Amylase (30-110) U/L Lipase (23-300) U/L Urine Color Urine Appearance (Clear) Urine pH (5.0-8.0) Ur Specific [place] (1.001-1.035) Urine Protein (Negative) Urine Glucose (UA) (Negative) Urine Ketones (Negative) Urine Blood (Negative) Urine Nitrite (Negative) Urine Bilirubin (Negative) Urine Urobilinogen (<2.0) mg/dL Ur Leukocyte Esterase (Negative) Urine RBC (0-5) /hpf Urine WBC (0-5) /hpf - Radiology Data Radiology results: report reviewed (Computed tomography scan of the abdomen pelvis shows questionable punctate calculi left UPJ. Possible urinary tract infection, mild bilateral periuretral fat stranding.) Disposition Clinical Impression: Urinary tract infection, Kidney stone Disposition: HOME SELF-CARE Condition: Stable Instructions: Urinary Tract Infection in Women (ED), Kidney Stones (ED) Additional Instructions: Please follow-up to in the beginning the next day or 2 for recheck. Return for fever, increased pain, vomiting, worsening symptoms or other concerns. Prescriptions: Cephalexin [Keflex] 500 mg PO QID #40 cap Referrals: Musa Damon MD [Primary Care Provider] - 1-2 days Porter Smith MD [STAFF PHYSICIAN] - 1-2 days Time of Disposition: 05:57
[2017-03-21 04:51] LABS: Appearance,Urine Turbid (Clear); Bilirubin,Urine Negative (Negative); Glucose,Urine (UA) Negative (Negative); Ketones,Urine Trace (Negative); Leukocyte Esterase,Urine Small (Negative); Nitrite,Urine Negative (Negative); PH, Urine 7.5 (5.0-8.0); Particle Count 6242; Protein,Urine 2+ (Negative); RBC,Urine >182 /hpf (0-5); UA Billing (MACRO vs. MICRO) MICRO; Urobilinogen,Urine <2.0 mg/dL (<2.0); WBC,Urine 46 /hpf (0-5)
[2017-03-21 04:55] LABS: Basophils % (A) 0 %; CH 32.4; CHCM 34.6; Eosinophils # (A) 0.3 k/uL (0-0.7); Eosinophils % (A) 2 %; HCT 43.9 % (34.0-46.0); HDW 2.64; HGB 14.9 gm/dL (11.4-16.0); Luc # (Auto) 0.18; Luc % (Auto) 2; Lymphocytes # (A) 1.3 k/uL (1.0-4.8); Lymphocytes % (A) 11 %; MCV 94.2 fL (80.0-100.0); Mean Platelet Volume 8.4; Monocytes # (A) 0.5 k/uL (0-1.0); Monocytes % (A) 4 %; Neutrophils # (A) 9.8 k/uL (1.3-7.7); Neutrophils % (A) 81 %; RBC 4.66 m/uL (3.80-5.40); WBC 12.1 k/uL (3.8-10.6); WBC (Perox) 11.36
[2017-03-21 05:03] LABS: Specific Gravity,Urine 1.011 (1.001-1.035)
[2017-03-21 05:04] LABS: ALT 59 U/L (9-52); AST 39 U/L (14-36); Alkaline Phosphatase 76 U/L (38-126); Amylase 60 U/L (30-110); Anion Gap 12 mmol/L; Blood Urea Nitrogen 11 mg/dL (7-17); Calcium 9.7 mg/dL (8.4-10.2); Carbon Dioxide 20 mmol/L (22-30); Chloride 106 mmol/L (98-107); Glucose 140 mg/dL (74-99); Non-African American GFR(MDRD) >60 (>60 ml/min/1.73 sqM); Potassium 3.7 mmol/L (3.5-5.1); Sodium 138 mmol/L (137-145); Total Bilirubin 0.5 mg/dL (0.2-1.3); Total Protein 7.2 g/dL (6.3-8.2)
[2017-03-21 05:12] LABS: Partial Thromboplastin Time 24.9 sec (22.0-30.0); Prothrombin Time 10.2 sec (9.0-12.0)
--- NOTE | 2017-03-21 05:20 | CT ---
EXAM: CT Abdomen and Pelvis Without Intravenous Contrast. CLINICAL HISTORY: Abdominal pain TECHNIQUE: Axial computed tomography images of the abdomen and pelvis without intravenous contrast. CTDI is 6.5 mGy and DLP is 290.6 mGy-cm. This CT exam was performed using one or more of the following dose reduction techniques: automated exposure control, adjustment of the mA and/or kV according to patient size, and/or use of iterative reconstruction technique. COMPARISON: 02/18/17 FINDINGS: Lower thorax: No acute findings. ABDOMEN: Liver: Hepatic steatosis. Pancreas: Unremarkable. No ductal dilation. Spleen: Unremarkable. No splenomegaly. Adrenals: Unremarkable. No mass. Kidneys and ureters: Questionable punctate calculus at the left ureteral pelvic junction (image 54 of series 3) with minimal left-sided hydronephrosis. If the patient's pain is localized to the left flank, findings likely represent a mild acute obstructive uropathy. Additionally, there is mild bilateral periureteral fat stranding, which may be due to ascending urinary tract infection. Please correlate with urinalysis. PELVIS: Bladder: Unremarkable. No stones. Reproductive: Unremarkable as visualized. Appendix: No findings to suggest acute appendicitis. ABDOMEN + PELVIS: Stomach and bowel: Unremarkable. No obstruction. No mucosal thickening. Peritoneum: Unremarkable. No significant fluid collection. No free air. Lymph nodes: Unremarkable. No enlarged lymph nodes. Vasculature: Unremarkable. No aortic aneurysm. Bones: No acute fracture. Severe degenerative changes of the lumbar spine. IMPRESSION: Questionable punctate obstructing calculus at left ureteropelvic junction with minimal hydronephrosis, suggestive of mild acute obstructive uropathy. Mild bilateral periureteral fat stranding. Please correlate with urinalysis to exclude ascending urinary tract infection. Hepatic steatosis.
[2017-03-21] MEDS ORDERED: KETOROLAC 30 MG/ML 1 ML VIAL IVP STA (05:53)
[2017-03-21 07:01] VITALS: BP 111/74; PULSE 86; RESP 16; TEMP 98
== END 2017-03-21 06:59 | disposition home or self-care (01) ==
LOC: EC 04:06
DX: N20.0 Calculus of kidney (principal); N39.0 Urinary tract infection, site not specified; R11.2 Nausea with vomiting, unspecified; E78.5 Hyperlipidemia, unspecified; G35 Multiple sclerosis; F32.9 Major depressive disorder, single episode, unspecified; F41.9 Anxiety disorder, unspecified; F17.200 Nicotine dependence, unspecified, uncomplicated; Z79.899 Other long term (current) drug therapy; Z88.1 Allergy status to other antibiotic agents; Z87.19 Personal history of other diseases of the digestive system; Z90.49 Acquired absence of other specified parts of digestive tract
CPT/HCPCS: 36415; 80053; 82150; 83690; 85025; 85610; 85730; 81001; 87086; 87077; 87186; 74176; 99284; 96365; 96375 ×3; 96361 ×3; J2270; J2405; J0696; J1885

== ENCOUNTER 2017-11-27 07:58 | Emergency (ER) | payer MEDICARE, OTHER ==
[2017-11-27 08:06] VITALS: TEMP 97.4
[2017-11-27] MEDS ORDERED: RX INFO: IV CONTRAST WAS GIVEN 1 EACH MISC MISCELLANE PRN (08:22)
[2017-11-27] MEDS ORDERED: MORPHINE SULFATE 4 MG/ML SYRINGE IVP STA (08:22)
[2017-11-27] MEDS ORDERED: SODIUM CHLORIDE 0.9% 1,000 ML IV STA (08:22)
[2017-11-27] MEDS ORDERED: ONDANSETRON 4 MG/2 ML VIAL IVP STA (08:22)
[2017-11-27] MEDS ORDERED: PANTOPRAZOLE 40 MG/10 ML VIAL IVP STA (08:23)
--- NOTE | 2017-11-27 08:51 | ED ---
Abdominal Pain HPI <Connor Hunter - Last Filed: 11/27/17 11:47> - General Source: patient, EMS, RN notes reviewed Mode of arrival: EMS Limitations: no limitations <Derian Parker - Last Filed: 11/27/17 11:55> - General Chief Complaint: Abdominal Pain Stated Complaint: EVA, abd pain Time Seen by Provider: 11/27/17 08:06 - History of Present Illness Initial Comments: This a 57-year-old female presents emergency Department chief complaint of abdominal pain. Patient states his been worse over the last days but worsened primarily this morning. Patient states that she's been told that she has ulcerative colitis. Patient states that she has not noticed any rectal bleeding. Patient denies any fever, chills. Patient states she has has nausea vomiting the pain is primarily upper abdomen. She states pain is consistent with her prior also colitis conditions. Patient also states that she's had gastric ulcers. Patient states that she is having some shortness of breath associated with her COPD. She's given breathing treatment by EMS which has helped. He continues to smoke. Patient denies any chest pain, back pain. Patient said no dysuria no hematuria. (Derian Parker) - Related Data Home Medications Medication Instructions Recorded Confirmed Amitriptyline HCl [Elavil] 10 mg PO HS 02/17/17 11/27/17 HYDROcodone/APAP 10-325MG [[place] 1 tab PO Q6H PRN 02/17/17 11/27/17 10-325] Nitroglycerin Sl Tabs [Nitrostat] 0.4 mg SUBLINGUAL Q5M PRN 02/17/17 11/27/17 Rebif Rebidose 44mcg/0.5ml 0.44 mcg SQ MOWEFR 02/17/17 11/27/17 Simvastatin [Zocor] 20 mg PO HS 02/17/17 11/27/17 Pantoprazole Sodium [Protonix] 40 mg PO QAM 11/27/17 11/27/17 Prochlorperazine [Compazine] 10 mg PO Q8H PRN 11/27/17 11/27/17 Sucralfate [Carafate] 1 gm PO ACHS 11/27/17 11/27/17 Allergies Allergy/AdvReac Type Severity Reaction Status Date / Time ciprofloxacin Allergy Rash/Hives Verified 11/27/17 08:32 Review of Systems ROS Other: All systems not noted in ROS Statement are negative. <Connor Hunter N - Last Filed: 11/27/17 11:47> ROS Other: All systems not noted in ROS Statement are negative. <Derian Parker - Last Filed: 11/27/17 11:55> ROS Statement: Those systems with pertinent positive or pertinent negative responses have been documented in the HPI. Past Medical History Past Medical History: GERD/Reflux, Hyperlipidemia, Osteoarthritis (OA), Pneumonia Additional Past Medical History / Comment(s): Multiple sclerosis, Ulcerative Colitis, Osteoporosis L hip.past kidney stone, past benign throat tumor removed , shanika tinnitus, migarines, "3 samll strokes""poor circulation rt leg",hiatal hernia, fx tail bone, occ n/t arms and laegs History of Any Multi-Drug Resistant Organisms: None Reported Past Surgical History: Cholecystectomy, Orthopedic Surgery, Tonsillectomy, Tubal Ligation Additional Past Surgical History / Comment(s): tumor removed from throat, kidney stone removed,"artifiical ear drum inserted""roller ball sx d/t heavy periods-has'nt had a period in >20 years, colonoscopy/egd, rt rotator cuff repair, rt bicept sx d/t tear. Past Anesthesia/Blood Transfusion Reactions: Motion Sickness, Postoperative Nausea & Vomiting (PONV) Additional Past Anesthesia/Blood Transfusion Reaction / Comment(s): clausterphobia Past Psychological History: Anxiety, Depression Smoking Status: Current every day smoker Past Alcohol Use History: None Reported Past Drug Use History: None Reported - Past Family History Father Family Medical History: Cancer Additional Family Medical History / Comment(s): throat Mother Family Medical History: Cancer Additional Family Medical History / Comment(s): uterin/bone <Derian Parker - Last Filed: 11/27/17 11:55> General Exam Limitations: no limitations General appearance: alert, in no apparent distress Head exam: Present: atraumatic, normocephalic, normal inspection Eye exam: Present: normal appearance, PERRL, EOMI. Absent: scleral icterus, conjunctival injection, periorbital swelling ENT exam: Present: normal exam, normal oropharynx, mucous membranes moist, TM's normal bilaterally, normal external ear exam Neck exam: Present: normal inspection. Absent: tenderness, meningismus, lymphadenopathy Respiratory exam: Present: wheezes. Absent: normal lung sounds bilaterally, respiratory distress, rales, rhonchi, stridor Cardiovascular Exam: Present: regular rate, normal rhythm, normal heart sounds. Absent: systolic murmur, diastolic murmur, rubs, gallop, clicks GI/Abdominal exam: Present: soft, tenderness, normal bowel sounds. Absent: distended, guarding, rebound, rigid Back exam: Absent: CVA tenderness (R), CVA tenderness (L) Skin exam: Present: warm, dry, intact, normal color. Absent: rash <Derian Parker - Last Filed: 11/27/17 11:55> Vital Signs 11/27/17 11/27/17 08:02 09:24 Temperature 97.4 F L Pulse Rate 77 84 Respiratory 22 16 Rate Blood Pressure 122/75 135/76 O2 Sat by Pulse 100 99 Oximetry Medical Decision Making - Lab Data Result diagrams: 11/27/17 08:45 11/27/17 08:45 <Connor Hunter - Last Filed: 11/27/17 11:47> - Lab Data Result diagrams: 11/27/17 08:45 11/27/17 08:45 <Derian Parker - Last Filed: 11/27/17 11:55> - Medical Decision Making 57-year-old female presenting with abdominal pain and vomiting. Patient is very uncomfortable on initial evaluation. Vital signs are stable. Laboratory studies obtained, normal white blood cell count, stable hemoglobin. Other laboratory studies within normal limits. CT is obtained which shows fat stranding and inflammation change at the retroperitoneum adjacent to the duodenum and aorta and IVC. The aorta is normal caliber, no dissection, no aneurysm. There is concern for vasculitis, duodenitis or adjacent infection to the aorta. Case discussed with vascular surgery Dr. Phillips who feels this patient would benefit from transfer to higher level of care. The admitting service agrees with transfer. Case discussed with Dr. Valero at [facility], which the patient requested as a transfer facility, he will accept patient has urinary ER transfer. Blood cultures pending. Patient given Protonix, and steroids as well as pain medication the emergency department. Antibiotics held at this time, there is no other signs pointing to bacterial infection, no fever, no white blood cell count, negative CRP. (Connor Hunter) Accepting physician at [facility] is Dr. Valero (Derian Parker) - Lab Data Lab Results 11/27/17 11/27/17 11/27/17 Range/Units 08:45 08:45 08:45 WBC 7.4 (3.8-10.6) k/uL RBC 4.48 (3.80-5.40) m/uL Hgb 13.3 (11.4-16.0) gm/dL Hct 39.8 (34.0-46.0) % MCV 89.0 (80.0-100.0) fL MCH 29.6 (25.0-35.0) pg MCHC 33.3 (31.0-37.0) g/dL RDW 13.1 (11.5-15.5) % Plt Count 225 (150-450) k/uL Neutrophils % 73 % Lymphocytes % 18 % Monocytes % 4 % Eosinophils % 4 % Basophils % 0 % Neutrophils # 5.4 (1.3-7.7) k/uL Lymphocytes # 1.4 (1.0-4.8) k/uL Monocytes # 0.3 (0-1.0) k/uL Eosinophils # 0.3 (0-0.7) k/uL Basophils # 0.0 (0-0.2) k/uL PT (9.0-12.0) sec INR (<1.2) APTT (22.0-30.0) sec Sodium 145 (137-145) mmol/L Potassium 3.9 (3.5-5.1) mmol/L Chloride 110 H (98-107) mmol/L Carbon Dioxide 21 L (22-30) mmol/L Anion Gap 14 mmol/L BUN 16 (7-17) mg/dL Creatinine 0.72 (0.52-1.04) mg/dL Est GFR (CKD-EPI)AfAm >90 (>60 ml/min/1.73 sqM) Est GFR (CKD-EPI)NonAf >90 (>60 ml/min/1.73 sqM) Glucose 105 H (74-99) mg/dL Plasma Lactic Acid Silver 1.1 (0.7-2.0) mmol/L Calcium 9.6 (8.4-10.2) mg/dL Total Bilirubin 0.4 (0.2-1.3) mg/dL AST 45 H (14-36) U/L ALT 49 (9-52) U/L Alkaline Phosphatase 106 (38-126) U/L Troponin I (0.000-0.034) ng/mL C-Reactive Protein (<10.0) mg/L Total Protein 7.4 (6.3-8.2) g/dL Albumin 4.2 (3.5-5.0) g/dL Amylase 85 (30-110) U/L Lipase 69 (23-300) U/L Urine Color Urine Appearance (Clear) Urine pH (5.0-8.0) Ur Specific [place] (1.001-1.035) Urine Protein (Negative) Urine Glucose (UA) (Negative) Urine Ketones (Negative) Urine Blood (Negative) Urine Nitrite (Negative) Urine Bilirubin (Negative) Urine Urobilinogen (<2.0) mg/dL Ur Leukocyte Esterase (Negative) Urine WBC (0-5) /hpf Ur Squamous Epith Cells (0-4) /hpf Amorphous Sediment (None) /hpf Urine Mucus (None) /hpf 11/27/17 11/27/17 11/27/17 Range/Units 08:45 08:45 08:45 WBC (3.8-10.6) k/uL RBC (3.80-5.40) m/uL Hgb (11.4-16.0) gm/dL Hct (34.0-46.0) % MCV (80.0-100.0) fL MCH (25.0-35.0) pg MCHC (31.0-37.0) g/dL RDW (11.5-15.5) % Plt Count (150-450) k/uL Neutrophils % % Lymphocytes % % Monocytes % % Eosinophils % % Basophils % % Neutrophils # (1.3-7.7) k/uL Lymphocytes # (1.0-4.8) k/uL Monocytes # (0-1.0) k/uL Eosinophils # (0-0.7) k/uL Basophils # (0-0.2) k/uL PT 9.8 (9.0-12.0) sec INR 1.0 (<1.2) APTT 24.2 (22.0-30.0) sec Sodium (137-145) mmol/L Potassium (3.5-5.1) mmol/L Chloride (98-107) mmol/L Carbon Dioxide (22-30) mmol/L Anion Gap mmol/L BUN (7-17) mg/dL Creatinine (0.52-1.04) mg/dL Est GFR (CKD-EPI)AfAm (>60 ml/min/1.73 sqM) Est GFR (CKD-EPI)NonAf (>60 ml/min/1.73 sqM) Glucose (74-99) mg/dL Plasma Lactic Acid Silver (0.7-2.0) mmol/L Calcium (8.4-10.2) mg/dL Total Bilirubin (0.2-1.3) mg/dL AST (14-36) U/L ALT (9-52) U/L Alkaline Phosphatase (38-126) U/L Troponin I <0.012 (0.000-0.034) ng/mL C-Reactive Protein <5.0 (<10.0) mg/L Total Protein (6.3-8.2) g/dL Albumin (3.5-5.0) g/dL Amylase (30-110) U/L Lipase (23-300) U/L Urine Color Urine Appearance (Clear) Urine pH (5.0-8.0) Ur Specific [place] (1.001-1.035) Urine Protein (Negative) Urine Glucose (UA) (Negative) Urine Ketones (Negative) Urine Blood (Negative) Urine Nitrite (Negative) Urine Bilirubin (Negative) Urine Urobilinogen (<2.0) mg/dL Ur Leukocyte Esterase (Negative) Urine WBC (0-5) /hpf Ur Squamous Epith Cells (0-4) /hpf Amorphous Sediment (None) /hpf Urine Mucus (None) /hpf 11/27/17 Range/Units 10:00 WBC (3.8-10.6) k/uL RBC (3.80-5.40) m/uL Hgb (11.4-16.0) gm/dL Hct (34.0-46.0) % MCV (80.0-100.0) fL MCH (25.0-35.0) pg MCHC (31.0-37.0) g/dL RDW (11.5-15.5) % Plt Count (150-450) k/uL Neutrophils % % Lymphocytes % % Monocytes % % Eosinophils % % Basophils % % Neutrophils # (1.3-7.7) k/uL Lymphocytes # (1.0-4.8) k/uL Monocytes # (0-1.0) k/uL Eosinophils # (0-0.7) k/uL Basophils # (0-0.2) k/uL PT (9.0-12.0) sec INR (<1.2) APTT (22.0-30.0) sec Sodium (137-145) mmol/L Potassium (3.5-5.1) mmol/L Chloride (98-107) mmol/L Carbon Dioxide (22-30) mmol/L Anion Gap mmol/L BUN (7-17) mg/dL Creatinine (0.52-1.04) mg/dL Est GFR (CKD-EPI)AfAm (>60 ml/min/1.73 sqM) Est GFR (CKD-EPI)NonAf (>60 ml/min/1.73 sqM) Glucose (74-99) mg/dL Plasma Lactic Acid Silver (0.7-2.0) mmol/L Calcium (8.4-10.2) mg/dL Total Bilirubin (0.2-1.3) mg/dL AST (14-36) U/L ALT (9-52) U/L Alkaline Phosphatase (38-126) U/L Troponin I (0.000-0.034) ng/mL C-Reactive Protein (<10.0) mg/L Total Protein (6.3-8.2) g/dL Albumin (3.5-5.0) g/dL Amylase (30-110) U/L Lipase (23-300) U/L Urine Color Light Yellow Urine Appearance Cloudy H (Clear) Urine pH 7.5 (5.0-8.0) Ur Specific [place] 1.012 (1.001-1.035) Urine Protein Negative (Negative) Urine Glucose (UA) Negative (Negative) Urine Ketones Negative (Negative) Urine Blood Negative (Negative) Urine Nitrite Negative (Negative) Urine Bilirubin Negative (Negative) Urine Urobilinogen <2.0 (<2.0) mg/dL Ur Leukocyte Esterase Negative (Negative) Urine WBC 1 (0-5) /hpf Ur Squamous Epith Cells 6 H (0-4) /hpf Amorphous Sediment Occasional H (None) /hpf Urine Mucus Rare H (None) /hpf Disposition <Connor Hunter - Last Filed: 11/27/17 11:47> - Out of Hospital Transfer - Req. Specs Out of Hospital Transfer - Requested Specifics: Other Emergency Center ([facility]) <Derian Parker - Last Filed: 11/27/17 11:55> Clinical Impression: Retroperitoneal lymphadenopathy, Vasculitis, Duodenitis, Abdominal pain Disposition: OTHER INSTITUTION NOT DEFINED Condition: Stable Referrals: Musa Damon MD [Primary Care Provider] - 1-2 days
[2017-11-27 08:59] LABS: Basophils % (A) 0 %; Eosinophils # (A) 0.3 k/uL (0-0.7); Eosinophils % (A) 4 %; HCT 39.8 % (34.0-46.0); HGB 13.3 gm/dL (11.4-16.0); Lymphocytes # (A) 1.4 k/uL (1.0-4.8); Lymphocytes % (A) 18 %; MCH 29.6 pg (25.0-35.0); MCHC 33.3 g/dL (31.0-37.0); Mean Platelet Volume 8.1; Monocytes # (A) 0.3 k/uL (0-1.0); Monocytes % (A) 4 %; Neutrophils # (A) 5.4 k/uL (1.3-7.7); Neutrophils % (A) 73 %; Platelet Count 225 k/uL (150-450); RBC 4.48 m/uL (3.80-5.40); RDW 13.1 % (11.5-15.5); WBC 7.4 k/uL (3.8-10.6)
[2017-11-27] MEDS ORDERED: LORazepam 2 MG/ML INJ IV STA (08:59)
[2017-11-27] MEDS ORDERED: diphenhydrAMINE 50 MG/ML 1 ML VIAL IVP STA (08:59)
[2017-11-27 09:05] LABS: Prothrombin Time 9.8 sec (9.0-12.0)
[2017-11-27 09:06] LABS: Partial Thromboplastin Time 24.2 sec (22.0-30.0)
[2017-11-27 09:26] VITALS: RESP 16
[2017-11-27 09:36] LABS: ALT 49 U/L (9-52); AST 45 U/L (14-36); Albumin 4.2 g/dL (3.5-5.0); Alkaline Phosphatase 106 U/L (38-126); Amylase 85 U/L (30-110); Anion Gap 14 mmol/L; Blood Urea Nitrogen 16 mg/dL (7-17); Calcium 9.6 mg/dL (8.4-10.2); Carbon Dioxide 21 mmol/L (22-30); Chloride 110 mmol/L (98-107); Glucose 105 mg/dL (74-99); Lipase 69 U/L (23-300); Potassium 3.9 mmol/L (3.5-5.1); Sodium 145 mmol/L (137-145); Total Bilirubin 0.4 mg/dL (0.2-1.3); Total Protein 7.4 g/dL (6.3-8.2)
--- NOTE | 2017-11-27 09:37 | CT ---
EXAMINATION TYPE: CT abdomen pelvis w con DATE OF EXAM: 11/27/2017 COMPARISON: 03/21/2017, 02/18/2017 HISTORY: Severe abdominal pain, onset this am CT DLP: 359.9 mGycm Automated exposure control for dose reduction was used. CONTRAST: CT scan of the abdomen pelvis is performed with IV Contrast, patient injected with 100 mL of Isovue 3 00. FINDINGS- LUNG BASES-subsegmental linear changes involving both lung bases suggestive of scar or atelectasis. LIVER/GB-postcholecystectomy changes are noted. There is intrahepatic biliary dilation. Hypodensity w ithin the right lobe of the liver is too small to characterize. PANCREAS- No gross abnormality is seen. SPLEEN- No gross abnormality is seen. ADRENALS- No gross abnormality is seen. KIDNEYS/BLADDER- no hydronephrosis nephrolithiasis or renal mass. BOWEL-bowel gas pattern nonspecific.. LYMPH NODES- No greater than 1cm abdominal or pelvic lymph nodes are appreciated. OSSEOUS STRUCTURES-hypertrophic and degenerative change of the spine noted. OTHER- hypodensity within the uterine body likely represents a fibroid. There is ill-definition the retroperitoneum in the periaortic region. This is a nonspecific finding. Shotty lymphadenopathy noted in the region. IMPRESSION- 1. Aorta is of normal caliber there is mild stranding in the fat surrounding the aorta and IVC in the retroperitoneum with shotty adenopathy. This is a nonspecific finding. Could not exclude a mild infl ammatory process or adjacent duodenitis. Other considerations would be vasculitis or retroperitoneal early fibrosis. No evidence of aneurysm or dissection. Correlate clinically. 2. Post cholecystectomy changes with mild intrahepatic biliary ductal dilation likely postoperative
--- NOTE | 2017-11-27 09:57 | XR ---
EXAMINATION TYPE: XR abdomen 2V DATE OF EXAM: 11/27/2017 9:52 AM CLINICAL HISTORY: Nausea, vomiting and cough for one week with history of colitis TECHNIQUE: Supine and upright abdominal radiographs were obtained. COMPARISON: None. FINDINGS: Scattered gas is seen in non-distended small bowel loops. Gas and fecal material is seen in non-distended colon. There is no visceromegaly, pneumoperitoneum, or abnormal calcification apprecia phillip. The lung bases are clear. There is a mild levoscoliotic curvature of the lumbar spine with moder ate multilevel degenerative changes. Physiologic excretion of contrast is seen within the renal pelvi ses and urinary bladder from recent CT. Cholecystectomy clips are noted within the right upper quadra nt. IMPRESSION: Nonobstructive bowel gas pattern.
[2017-11-27 10:19] LABS: Amorphous Sediment,Urine Occasional /hpf; Appearance,Urine Cloudy (Clear); Bilirubin,Urine Negative (Negative); Blood,Urine Negative (Negative); Color,Urine Light Yellow; Glucose,Urine (UA) Negative (Negative); Ketones,Urine Negative (Negative); Leukocyte Esterase,Urine Negative (Negative); Mucus,Urine Rare /hpf; Nitrite,Urine Negative (Negative); PH, Urine 7.5 (5.0-8.0); Protein,Urine Negative (Negative); Specific Gravity,Urine 1.012 (1.001-1.035); Squamous Epithelial Cell,Urine 6 /hpf (0-4); Urobilinogen,Urine <2.0 mg/dL (<2.0); WBC,Urine 1 /hpf (0-5)
[2017-11-27] MEDS ORDERED: methylPREDNISolone SOD SUCCI 125 MG/2 ML VIAL IV STA (10:49)
[2017-11-27 11:54] VITALS: BP 124/81; PULSE 80
[2017-11-27 12:15] LABS: Amphetamine Screen,Urine Not Detected (NotDetected); Barbiturate Screen,Urine Not Detected (NotDetected); Benzodiazepines Screen,Urine Not Detected (NotDetected); Cocaine Screen,Urine Not Detected (NotDetected); Methadone Screen, Urine Not Detected (NotDetected); Opiate Screen,Urine Detected (NotDetected); Oxycodone Screen, Urine Not Detected (NotDetected); Phencyclidine Screen,Urine Not Detected (NotDetected); Tricyclic Antidepressant,Urine Not Detected (NotDetected); Urn Cannabinoid Scrn Detected (NotDetected)
== END 2017-11-27 12:44 | disposition other institution (70) ==
LOC: EC 07:58
DX: K29.80 Duodenitis without bleeding (principal); I77.6 Arteritis, unspecified; R59.0 Localized enlarged lymph nodes; K21.9 Gastro-esophageal reflux disease without esophagitis; E78.5 Hyperlipidemia, unspecified; F32.9 Major depressive disorder, single episode, unspecified; F41.9 Anxiety disorder, unspecified; F17.200 Nicotine dependence, unspecified, uncomplicated; Z86.018 Personal history of other benign neoplasm; Z79.899 Other long term (current) drug therapy; Z88.1 Allergy status to other antibiotic agents; Z90.49 Acquired absence of other specified parts of digestive tract
CPT/HCPCS: 99285; 96374; 96375 ×5; 96361; 36415; 93005; 80053; 85652; 82150; 83605; 83690; 84484; 85025; 85610; 85730; 86140; 81001; 87040; 80306; 74019; 74177; J2060; J2270; J1200; J2930; J2405; C9113; Q9967

== ENCOUNTER 2017-12-24 11:01 | Emergency (ER) | payer MEDICARE, OTHER ==
[2017-12-24 11:34] VITALS: RESP 18
[2017-12-24] MEDS ORDERED: SODIUM CHLORIDE 0.9% 2,000 ML IV STA (12:25)
[2017-12-24] MEDS ORDERED: ONDANSETRON 4 MG/2 ML VIAL IVP STA (12:33)
[2017-12-24] MEDS ORDERED: MORPHINE SULFATE 2 MG/ML SYRINGE IVP STA (12:33)
--- NOTE | 2017-12-24 12:34 | ED ---
Nausea/Vomiting/Diarrhea HPI - General Chief complaint: Nausea/Vomiting/Diarrhea Stated complaint: severe abdominal pain Hx MS Time Seen by Provider: 12/24/17 12:16 Source: patient, family, RN notes reviewed Mode of arrival: wheelchair Limitations: no limitations - History of Present Illness Initial comments: 57-year-old female presents emergency Department chief complaint of nausea vomiting abdominal pain. Patient was seen here a few weeks ago and was transferred to [place] for inflammation around her aorta and symptoms of ulcerative colitis. Patient states she has a follow-up appointment with GI. Patient states her last day or so she's been vomiting Control. She denies any fevers or chills. She was right-sided abdominal pain consistent with her prior history. Patient denies any dysuria, hematuria, diarrhea constipation or melena hematochezia. Patient denies any fever, chills, chest pain or shortness breath. - Related Data Home Medications Medication Instructions Recorded Confirmed Amitriptyline HCl [Elavil] 10 mg PO HS 02/17/17 12/24/17 HYDROcodone/APAP 10-325MG [[place] 1 tab PO Q6H PRN 02/17/17 12/24/17 10-325] Simvastatin [Zocor] 20 mg PO HS 02/17/17 12/24/17 Pantoprazole Sodium [Protonix] 40 mg PO QAM 11/27/17 12/24/17 Prochlorperazine [Compazine] 10 mg PO Q8H PRN 11/27/17 12/24/17 Dicyclomine [Bentyl] 20 mg PO TID PRN 12/24/17 12/24/17 Previous Rx's Medication Instructions Recorded Ondansetron Odt [Zofran Odt] 4 mg PO Q8HR PRN #14 tab 12/24/17 Allergies Allergy/AdvReac Type Severity Reaction Status Date / Time ciprofloxacin Allergy Rash/Hives Verified 12/24/17 12:47 Review of Systems ROS Statement: Those systems with pertinent positive or pertinent negative responses have been documented in the HPI. ROS Other: All systems not noted in ROS Statement are negative. Past Medical History Past Medical History: GERD/Reflux, Hyperlipidemia, Osteoarthritis (OA), Pneumonia Additional Past Medical History / Comment(s): Multiple sclerosis, Ulcerative Colitis, Osteoporosis L hip.past kidney stone, past benign throat tumor removed , shanika tinnitus, migarines, "3 samll strokes""poor circulation rt leg",hiatal hernia, fx tail bone, occ n/t arms and laegs History of Any Multi-Drug Resistant Organisms: None Reported Past Surgical History: Cholecystectomy, Orthopedic Surgery, Tonsillectomy, Tubal Ligation Additional Past Surgical History / Comment(s): tumor removed from throat, kidney stone removed,"artifiical ear drum inserted""roller ball sx d/t heavy periods-has'nt had a period in >20 years, colonoscopy/egd, rt rotator cuff repair, rt bicept sx d/t tear. Past Anesthesia/Blood Transfusion Reactions: Motion Sickness, Postoperative Nausea & Vomiting (PONV) Additional Past Anesthesia/Blood Transfusion Reaction / Comment(s): clausterphobia Past Psychological History: Anxiety, Depression Smoking Status: Current every day smoker Past Alcohol Use History: None Reported Past Drug Use History: None Reported - Past Family History Father Family Medical History: Cancer Additional Family Medical History / Comment(s): throat Mother Family Medical History: Cancer Additional Family Medical History / Comment(s): uterin/bone General Exam General appearance: alert, in no apparent distress Head exam: Present: atraumatic, normocephalic, normal inspection Eye exam: Present: normal appearance, PERRL, EOMI. Absent: scleral icterus, conjunctival injection, periorbital swelling ENT exam: Present: normal exam, normal oropharynx, mucous membranes moist Neck exam: Present: normal inspection. Absent: tenderness, meningismus, lymphadenopathy Respiratory exam: Present: normal lung sounds bilaterally. Absent: respiratory distress, wheezes, rales, rhonchi, stridor Cardiovascular Exam: Present: regular rate, normal rhythm, normal heart sounds. Absent: systolic murmur, diastolic murmur, rubs, gallop, clicks GI/Abdominal exam: Present: soft, tenderness (Mild right-sided abdominal tenderness), normal bowel sounds. Absent: distended, guarding, rebound, rigid Back exam: Absent: CVA tenderness (R), CVA tenderness (L) Skin exam: Present: warm, dry, intact, normal color. Absent: rash Course Vital Signs 12/24/17 12/24/17 11:30 13:46 Temperature 97.5 F L 97.2 F L Pulse Rate 70 62 Respiratory 18 18 Rate Blood Pressure 131/103 179/89 O2 Sat by Pulse 100 99 Oximetry Medical Decision Making - Medical Decision Making 57-year-old female presented for abdominal pain nausea vomiting. Patient was hydrated given pain medications that she feels improved. Patient has known history of ulcerative colitis and states she has follow-up appointment with GI. Patient will be discharged with antiemetics and return parameters were discussed. - Lab Data Result diagrams: 12/24/17 12:58 12/24/17 12:58 Lab Results 12/24/17 12/24/17 12/24/17 Range/Units 12:58 12:58 12:58 WBC 8.9 (3.8-10.6) k/uL RBC 5.02 (3.80-5.40) m/uL Hgb 15.2 (11.4-16.0) gm/dL Hct 45.7 (34.0-46.0) % MCV 91.1 (80.0-100.0) fL MCH 30.3 (25.0-35.0) pg MCHC 33.2 (31.0-37.0) g/dL RDW 13.8 (11.5-15.5) % Plt Count 286 (150-450) k/uL Neutrophils % 80 % Lymphocytes % 15 % Monocytes % 3 % Eosinophils % 1 % Basophils % 0 % Neutrophils # 7.1 (1.3-7.7) k/uL Lymphocytes # 1.3 (1.0-4.8) k/uL Monocytes # 0.2 (0-1.0) k/uL Eosinophils # 0.1 (0-0.7) k/uL Basophils # 0.0 (0-0.2) k/uL Sodium 144 (137-145) mmol/L Potassium 4.4 (3.5-5.1) mmol/L Chloride 104 (98-107) mmol/L Carbon Dioxide 24 (22-30) mmol/L Anion Gap 16 mmol/L BUN 15 (7-17) mg/dL Creatinine 0.77 (0.52-1.04) mg/dL Est GFR (CKD-EPI)AfAm >90 (>60 ml/min/1.73 sqM) Est GFR (CKD-EPI)NonAf 85 (>60 ml/min/1.73 sqM) Glucose 148 H (74-99) mg/dL Calcium 10.4 H (8.4-10.2) mg/dL Total Bilirubin 0.7 (0.2-1.3) mg/dL AST 61 H (14-36) U/L ALT 48 (9-52) U/L Alkaline Phosphatase 71 (38-126) U/L Total Protein 8.3 H (6.3-8.2) g/dL Albumin 5.0 (3.5-5.0) g/dL Amylase 58 (30-110) U/L Lipase 60 (23-300) U/L Urine Color Yellow Urine Appearance Clear (Clear) Urine pH 6.5 (5.0-8.0) Ur Specific [place] 1.011 (1.001-1.035) Urine Protein Trace H (Negative) Urine Glucose (UA) Negative (Negative) Urine Ketones 2+ H (Negative) Urine Blood Negative (Negative) Urine Nitrite Negative (Negative) Urine Bilirubin Negative (Negative) Urine Urobilinogen <2.0 (<2.0) mg/dL Ur Leukocyte Esterase Negative (Negative) Disposition Clinical Impression: Abdominal pain, Nausea & vomiting Disposition: HOME SELF-CARE Condition: Stable Instructions: Abdominal Pain (ED) Additional Instructions: Please return to the Emergency Department if symptoms worsen or any other concerns. Prescriptions: Ondansetron Odt [Zofran Odt] 4 mg PO Q8HR PRN #14 tab PRN Reason: Nausea Is patient prescribed a controlled substance at d/c from ED?: No Referrals: Musa Damon MD [STAFF PHYSICIAN] - 1-2 days Fuentes Correia MD [STAFF PHYSICIAN] - 1-2 days Time of Disposition: 14:11
[2017-12-24 13:12] LABS: Appearance,Urine Clear (Clear); Bilirubin,Urine Negative (Negative); Blood,Urine Negative (Negative); Color,Urine Yellow; Glucose,Urine (UA) Negative (Negative); Ketones,Urine 2+ (Negative); Leukocyte Esterase,Urine Negative (Negative); Nitrite,Urine Negative (Negative); PH, Urine 6.5 (5.0-8.0); Protein,Urine Trace (Negative); Specific Gravity,Urine 1.011 (1.001-1.035); Urobilinogen,Urine <2.0 mg/dL (<2.0)
[2017-12-24 13:16] LABS: Basophils % (A) 0 %; Eosinophils # (A) 0.1 k/uL (0-0.7); Eosinophils % (A) 1 %; HCT 45.7 % (34.0-46.0); HGB 15.2 gm/dL (11.4-16.0); Lymphocytes # (A) 1.3 k/uL (1.0-4.8); Lymphocytes % (A) 15 %; MCH 30.3 pg (25.0-35.0); MCHC 33.2 g/dL (31.0-37.0); MCV 91.1 fL (80.0-100.0); Mean Platelet Volume 7.3; Monocytes # (A) 0.2 k/uL (0-1.0); Monocytes % (A) 3 %; Neutrophils # (A) 7.1 k/uL (1.3-7.7); Neutrophils % (A) 80 %; Platelet Count 286 k/uL (150-450); RBC 5.02 m/uL (3.80-5.40); RDW 13.8 % (11.5-15.5); WBC 8.9 k/uL (3.8-10.6)
[2017-12-24 13:25] LABS: ALT 48 U/L (9-52); AST 61 U/L (14-36); Alkaline Phosphatase 71 U/L (38-126); Amylase 58 U/L (30-110); Anion Gap 16 mmol/L; Blood Urea Nitrogen 15 mg/dL (7-17); Calcium 10.4 mg/dL (8.4-10.2); Carbon Dioxide 24 mmol/L (22-30); Chloride 104 mmol/L (98-107); Glucose 148 mg/dL (74-99); Lipase 60 U/L (23-300); Potassium 4.4 mmol/L (3.5-5.1); Sodium 144 mmol/L (137-145); Total Bilirubin 0.7 mg/dL (0.2-1.3); Total Protein 8.3 g/dL (6.3-8.2)
[2017-12-24 13:47] VITALS: TEMP 97.2
--- NOTE | 2017-12-24 13:58 | XR ---
EXAMINATION TYPE: XR KUB DATE OF EXAM: 12/24/2017 COMPARISON: 02/17/2017 INDICATION: Pain vomiting TECHNIQUE: Single view abdomen supine view FINDINGS: There is a normal bowel gas pattern. Psoas margins are normal. No organomegaly is present. Cholecystectomy clips are in the right upper quadrant. IMPRESSION: 1. Unremarkable Abdomen
[2017-12-24] MEDS ORDERED: KETOROLAC 30 MG/ML 1 ML VIAL IVP STA (14:09)
[2017-12-24 14:29] VITALS: BP 173/94; PULSE 64
== END 2017-12-24 14:40 | disposition home or self-care (01) ==
LOC: EC 11:01
DX: K21.9 Gastro-esophageal reflux disease without esophagitis (principal); E78.5 Hyperlipidemia, unspecified; F41.9 Anxiety disorder, unspecified; F32.9 Major depressive disorder, single episode, unspecified; F17.200 Nicotine dependence, unspecified, uncomplicated; Z90.49 Acquired absence of other specified parts of digestive tract; Z98.51 Tubal ligation status; Z87.19 Personal history of other diseases of the digestive system; Z79.899 Other long term (current) drug therapy; Z88.1 Allergy status to other antibiotic agents; R10.9 Unspecified abdominal pain; R11.2 Nausea with vomiting, unspecified
CPT/HCPCS: 36415; 80053; 82150; 83690; 85025; 81003; 74018; 99284; 96374; 96375 ×2; 96361; J2405; J1885; J2270

== ENCOUNTER → 2019-06-11 | Outpatient (CLI) | payer MEDICARE, OTHER ==
--- NOTE | 2019-06-16 14:42 | P.ARTDOP ---
Arterial Doppler LOWER EXTREMITY ARTERIAL DOPPLER: DATE OF SERVICE: 06/11/2019 Reason for study: Bilateral foot pain. Doppler waveforms: Multiphasic bilaterally throughout. Pulse volume recording: []. Pressure gradients: None. Ankle-brachial indices: Greater than 1 on the right and 0.98 on the left Toe pressures: [] on the right, [] on the left Impression: Normal study.
== END | disposition home or self-care (01) ==
LOC: RADUSWWP 15:09
PROVIDERS: ATTEND Family Medicine
DX: I73.9 Peripheral vascular disease, unspecified (principal)
CPT/HCPCS: 93922

== ENCOUNTER → 2019-11-11 | Outpatient (CLI) | payer MEDICARE, OTHER ==
--- NOTE | 2019-11-11 15:11 | CT ---
EXAMINATION TYPE: CT abdomen pelvis wo con DATE OF EXAM: 11/11/2019 COMPARISON: 11/27/2017 HISTORY: 59-year-old female with unspecified abdominal pain, R10.9, generalized pain CT DLP: 505 mGycm. Automated exposure control for dose reduction was used. TECHNIQUE: Contiguous axial scanning of the abdomen and pelvis without IV contrast. Coronal and sagit christ reconstructions performed. FINDINGS: Heart normal size without pericardial effusion. Mild strandy atelectasis inferior lingula and right m iddle lobe. No pleural effusion. Some focal fat along the anterior falciform ligament. Otherwise, noncontrast images of the liver, adr enal glands, right kidney, spleen, and pancreas show no gross abnormality. Stable mild dilatation of the bile duct at 1 cm status post cholecystectomy. Punctate 1 mm left lower pole renal calculus. Mild atrophy described calcifications infrarenal abdominal aorta and iliac arteries. No dilated small bowel, free fluid, or free air. No mesenteric or retroperitoneal lymphadenopathy. Low lying cecum within the right side of the pelvis. Normal appendix. Scattered [id number] stoo l. No pericolonic inflammatory change. Bladder not distended. Uterus anteverted. Both ovaries are visualized. No abnormal fluid collection t he pelvis or pelvic lymphadenopathy seen. There is a small fat-containing right inguinal hernia measuring 3.3 cm, refer to axial image 62 of an coronal image 16. Bones: Advanced degenerative disc disease throughout the lumbar spine with hypertrophic facet arthrop athy. IMPRESSION: 1. Small fat-containing right inguinal hernia measuring 3.3 cm. 2. Punctate 1 mm nonobstructive left renal calculus. 3. Otherwise, no specific acute inflammatory process identified in the abdomen or pelvis to explain the patient's symptoms.
== END | disposition home or self-care (01) ==
LOC: RADCTMAIN 14:04
PROVIDERS: ATTEND Family Medicine
DX: K40.90 Unilateral inguinal hernia, without obstruction or gangrene, not specified as recurrent (principal); N20.0 Calculus of kidney
CPT/HCPCS: 74176

== ENCOUNTER → 2021-06-19 | Outpatient (CLI) | payer MEDICARE, OTHER ==
--- NOTE | 2021-06-25 11:59 | MM ---
Reason for exam: screening (asymptomatic). History: Patient is postmenopausal. Family history of breast cancer in mother at age 57. Physical Findings: A clinical breast exam by your physician is recommended on an annual basis and results should be correlated with mammographic findings. MG 3D Screening Mammo W/Cad Bilateral CC and MLO view(s) were taken. No prior studies available for comparison. The breast tissue is heterogeneously dense. This may lower the sensitivity of mammography. No significant findings. ASSESSMENT: Negative, BI-RAD 1 RECOMMENDATION: Routine screening mammogram of both breasts in 1 year.
== END | disposition home or self-care (01) ==
LOC: RADMAMWWP 14:23
PROVIDERS: ATTEND Family Medicine
DX: Z12.31 Encounter for screening mammogram for malignant neoplasm of breast (principal)
CPT/HCPCS: 77063; 77067

== ENCOUNTER → 2021-07-13 | Outpatient (CLI) | payer MEDICARE, OTHER ==
--- NOTE | 2021-07-13 11:19 | BD ---
EXAMINATION TYPE: Axial Bone Density DATE OF EXAM: 07/13/2021 COMPARISON: NONE CLINICAL HISTORY: Postmenopausal female. Height: 58.5 IN Weight: 126 LBS FRAX RISK QUESTIONS: Secondary Osteoporosis: 3. Menopause before 45: AGE 34 Current Tobacco Use: YES RISK FACTORS HISTORY OF: Active: YES Postmenopausal woman: AGE 34 Lost more than 2 inches in height since high school: YES 2 /2" Frequent falls: YES DUE TO MS MEDICATIONS: Additional Medications: CALCIUM, VIT D, VICODIN,SLEEPING MEDS, CHOLESTEROL MEDS EXAM MEASUREMENTS: Bone mineral densitometry was performed using the Delivered System. Bone mineral density as measured about the Lumbar spine is: ----- L1-L4(G/cm2): 1.273 T Score Values are as follows: ----- L2: 0.6 ----- L3: 1.1 ----- L4: 1.7 ----- L1-L4: 0.8 Bone mineral density BASELINE Bone mineral density about the R hip (g/cm2): 0.702 Bone mineral density about the L hip (g/cm2): 0.616 T Score values are as follows: -----R Neck: -2.4 -----L Neck: -3.0 -----R Total: -1.9 -----L Total: -2.6 Bone mineral density BASELINE IMPRESSION: Osteoporosis (T Score less than -2.5). There is increased fracture risk and therapy is usually indicated based on age. Re-Screen 1-2 years. NOTE: T-SCORE=SD OF THE YOUNG ADULT MEAN.
== END | disposition home or self-care (01) ==
LOC: RADBDWWP 09:23
PROVIDERS: ATTEND Family Medicine
DX: M81.0 Age-related osteoporosis without current pathological fracture (principal); Z78.0 Asymptomatic menopausal state
CPT/HCPCS: 77080

== ENCOUNTER → 2023-09-08 | Outpatient (CLI) | payer MEDICARE, OTHER ==
--- NOTE | 2023-09-08 13:51 | CT ---
EXAMINATION TYPE: CT chest wo con DATE OF EXAM: 09/08/2023 COMPARISON: Most recent chest x-ray 03/18/2023 HISTORY: prev abnormal cxr. CT DLP: 198.80 mGycm, Automated exposure control for dose reduction was used. CONTRAST: Performed injected with 0 mL of Isovue 300. TECHNIQUE: Axial images were obtained at 5 mm thick sections. Reconstructed images are reviewed on [employer] computer in the coronal plane. FINDINGS: Portion of the thyroid visualized is normal. There is a 1.1 cm groundglass opacity peripheral right lung. Series 4 image 20. Follow-up exam in 3-6 months is recommended. Some minimal atelectasis may be at the left base, series 4 image 29. Some linear opacities in the rig ht anterior lung base. Series 4 image 40. No enlarged mediastinal or hilar adenopathy is evident. A few scattered small lymph nodes are prese nt. The ascending aorta diameter at the level of the main pulmonary artery is 3.1 cm. The main pulmo nary artery diameter at the bifurcation is 2.[address] sections are obtained through the upper abdomen. Abdomen is essentially unremarkable. IMPRESSION: 1. Groundglass opacity peripheral right lung. Follow-up in 3-6 months is recommended. Infectious etio logy and neoplasm should be considered.
== END | disposition home or self-care (01) ==
LOC: RADCTMAIN 10:59
PROVIDERS: ATTEND Family Medicine
DX: R91.8 Other nonspecific abnormal finding of lung field (principal); R93.89 Abnormal findings on diagnostic imaging of other specified body structures
CPT/HCPCS: 71250